=== PATIENT | female | born 1995 | race Caucasian/White ===

== ENCOUNTER 2021-12-02 01:22 | Emergency (ER) | payer OTHER ==
--- NOTE | 2021-12-02 02:19 | ERPHSYRPT ---
- History of Present Illness Time Seen by Provider: 12/02/21 02:05 Source: patient Exam Limitations: no limitations Patient Subjective Stated Complaint: headache since 8am, b/p was high at work today. Been having headaches x3 weeks off and on Triage Nursing Assessment: pt c/o headache since 8am. Pt's b/p was elevated at work today as they took it twice. Pt has been having these headaches x3 weeks off and on. Pt became nauseous just recently, but no nausea or vomiting all day. Pt describes the pain as sharp, shooting pain occasionally and it hurts to move her eyes back and forth, has stiffness in her neck. Physician History: This is a 25-year-old white female who in the last 3 weeks has had at least a daily migraine headache that resolved with Tylenol and ibuprofen. She has not suffered any head trauma. However, at approximately 8 AM on 12/01/2021 patient has had a headache that she has not been able to get rid of. She is on Aldactone for PCOS. She has noticed that her blood pressure has been in the 140s to 150s for systolic blood pressure and 90s to low 100s for diastolic blood pressure. She states that the headache she has now is the worst headache she has ever had. Patient stated that she did drive herself to the emergency department but she can get a ride home from her . Patient has an appointment to see her nurse practitioner Mary Lockhart on 12/03/2021. Timing/Duration: yesterday Quality: aching, throbbing Head Pain Location: global Severity of Pain-Max: moderate Severity of Pain-Current: moderate Recent Head Trauma: no recent headache/trauma, occasional headaches (More frequent in the last 3 weeks) Associated Symptoms: nausea/vomiting, sensitive to light (Mild) Previous symptoms: no prior history Allergies/Adverse Reactions: No Known Drug Allergies Allergy (Unverified 12/02/21 02:03) Home Medications: Semaglutide [Ozempic] 0.25 mg SQ WEEKLY 12/02/21 [History] Spironolactone 25 mg [Aldactone 25 MG] 25 mg PO HS 12/02/21 [History] Venlafaxine HCl ER 75 mg [Effexor XR 75 MG] 1 cap PO HS 12/02/21 [History] Hx Tetanus, Diphtheria Vaccination/Date Given: Yes Hx Influenza Vaccination/Date Given: Yes Hx Pneumococcal Vaccination/Date Given: No Immunizations Up to Date: Yes Travel Risk - International Travel Have you traveled outside of the country in past 3 weeks: No - Coronavirus Screening Are you exhibiting any of the following symptoms?: Yes Symptoms: Headaches/Body Aches/Fatigue - Vaccine Status Have you recieved a Covid-19 vaccination: Yes Sieve Grader Tender: Moderna - Vaccination Dates Date of 2cond Vaccination (if applicable): . - Review of Systems Constitutional: No Symptoms Eyes: No Symptoms Ears, Nose, & Throat: No Symptoms Respiratory: No Symptoms Cardiac: No Symptoms Abdominal/Gastrointestinal: Nausea, No Abdominal Pain, No Vomiting Genitourinary Symptoms: No Symptoms, Other Skin: No Symptoms Neurological: Headache Psychological: No Symptoms Endocrine: No Symptoms Hematologic/Lymphatic: No Symptoms Immunological/Allergic: No Symptoms All Other Systems: Reviewed and Negative - Past Medical History Pertinent Past Medical History: Yes Neurological History: No Pertinent History ENT History: No Pertinent History Cardiac History: No Pertinent History Respiratory History: Asthma Endocrine Medical History: No Pertinent History Musculoskeletal History: No Pertinent History GI Medical History: Gallbladder Disease History: No Pertinent History Psycho-Social History: Anxiety, Depression Female Reproductive Disorders: Other Other Medical History: PCOS - Past Surgical History Past Surgical History: Yes Neuro Surgical History: No Pertinent History Cardiac: No Pertinent History Respiratory: No Pertinent History Gastrointestinal: Cholecystectomy Genitourinary: No Pertinent History Musculoskeletal: No Pertinent History Female Surgical History: No Pertinent History - Social History Smoking Status: Never smoker Exposure to second hand smoke: No Drug Use: none Patient Lives Alone: No - Female History Hx Last Menstrual Period: 2 weeks ago Hx Now: No - Nursing Vital Signs Nursing Vital Signs: Initial Vital Signs Temperature 97.9 F 12/02/21 01:55 Pulse Rate 104 H 12/02/21 01:55 Respiratory Rate 16 12/02/21 01:55 Blood Pressure 156/93 12/02/21 01:55 O2 Sat by Pulse Oximetry 100 12/02/21 01:55 Pain Scale Pain Intensity 3 - Physical Exam General Appearance: mild distress, alert, anxiety Eye Exam: PERRL/EOMI, eyes nml inspection Ears, Nose, Throat Exam: normal ENT inspection, moist mucous membranes Neck Exam: normal inspection, non-tender, supple, full range of motion, No meningismus, No Brudzinski, No Kernig's Respiratory Exam: airway intact, No chest tenderness, No respiratory distress Cardiovascular Exam: regular rate/rhythm, normal heart sounds, normal peripheral pulses Gastrointestinal/Abdominal Exam: soft, normal bowel sounds, No tenderness Back Exam: normal inspection, normal range of motion, No CVA tenderness, No vertebral tenderness Extremity Exam: normal inspection, normal range of motion, pelvis stable Mental Status Exam: alert, oriented x 3, cooperative search strategist Exam: normal hearing, normal speech, PERRL, tongue midline Coordination/Gait Exam: normal gait, normal cerebellar function Motor/Sensory Exam: no motor deficit, no sensory deficit, no pronator drift Skin Exam: normal color, warm, dry Lymphatic Exam: No adenopathy SpO2 Interpretation: normal SpO2: 100 O2 Delivery: Room Air Ordered Tests: Active Orders 24 hr Category Date Time Status HEAD WITHOUT CONTRAST [CT] Stat Exams 12/02/21 02:21 Ordered Medication Summary Discontinued Medications Generic Name Dose Route Start Last Admin Trade Name Freq PRN Reason Stop Dose Admin Diphenhydramine HCl 25 mg 12/02/21 02:20 12/02/21 02:31 Diphenhydramine Hcl 50 Mg/Ml Vial IM 12/02/21 02:21 25 mg STAT ONE Administration Diphenhydramine HCl Confirm 12/02/21 02:24 Diphenhydramine Hcl 50 Mg/Ml Vial Administered 12/02/21 02:25 Dose 50 mg .ROUTE .STK-MED ONE Hydromorphone HCl 0.5 mg 12/02/21 02:20 12/02/21 02:32 Hydromorphone 1 Mg/1ml Inj 1 Mg/Ml Syringe IM 12/02/21 02:21 0.5 mg STAT ONE Administration Hydromorphone HCl Confirm 12/02/21 02:25 Hydromorphone 1 Mg/1ml Inj 1 Mg/Ml Syringe Administered 12/02/21 02:26 Dose 1 mg .ROUTE .STK-MED ONE Ketorolac Tromethamine 60 mg 12/02/21 02:20 12/02/21 02:31 Ketorolac Tromethamine 30 Mg/Ml Inj IM 12/02/21 02:21 60 mg STAT ONE Administration Ketorolac Tromethamine Confirm 12/02/21 02:24 Ketorolac Tromethamine 30 Mg/Ml Inj Administered 12/02/21 02:25 Dose 60 mg .ROUTE .STK-MED ONE Ondansetron HCl 4 mg 12/02/21 02:20 12/02/21 02:32 Zofran 4 Mg/Udtablet Orally Disintegrating PO 12/02/21 02:21 4 mg STAT ONE Administration Ondansetron HCl Confirm 12/02/21 02:24 Zofran 4 Mg/Udtablet Orally Disintegrating Administered 12/02/21 02:25 Dose 4 mg .ROUTE .STK-MED ONE Lab/Rad Data: Laboratory Results 12/02/21 Range/Units 02:40 Influenza Type A Ag NEGATIVE (NEGATIVE) Influenza Type B Ag NEGATIVE (NEGATIVE) RSV (PCR) NEGATIVE (Negative) SARS-CoV-2 (PCR) NEGATIVE (NEGATIVE) - Progress Progress: improved, re-examined Air Movement: good Progress Note: 12/02/21 03:49 CAT scan of the of the head without contrast shows no acute intracranial abnormality 12/02/21 03:49 Counseled pt/family regarding: lab results, diagnosis, need for follow-up, rad results - Departure Departure Disposition: Home Clinical Impression: Migraine headache Condition: Stable Critical Care Time: No Referrals: JANY LOCKHART NP [Primary Care Provider] - Follow up/PCP as directed Additional Instructions: Keep your appointment with nurse practitioner Mary Lockhart on 12/03/2021 at scheduled appointment time.
[2021-12-02] MEDS ORDERED: TORAdol 30 mg Injection IM ONE (02:20)
[2021-12-02] MEDS ORDERED: Hydromorphone 1 mg/ml Injection IM ONE (02:20)
[2021-12-02] MEDS ORDERED: ZOFRAN ODT 4 MG PO ONE (02:20)
[2021-12-02] MEDS ORDERED: BENADRYL 50 MG/ML IM ONE (02:20)
[2021-12-02] MEDS ORDERED: ZOFRAN ODT 4 MG ONE (02:24)
[2021-12-02] MEDS ORDERED: TORAdol 30 mg Injection ONE (02:24)
[2021-12-02] MEDS ORDERED: BENADRYL 50 MG/ML ONE (02:24)
[2021-12-02] MEDS ORDERED: Hydromorphone 1 mg/ml Injection ONE (02:25)
[2021-12-02 03:20] LABS: INFLUENZA A NEGATIVE (NEGATIVE); INFLUENZA B NEGATIVE (NEGATIVE); RESPIRATORY SYNCTIAL VIRUS NEGATIVE (Negative); SARS-CoV-2 Xpert Express NEGATIVE (NEGATIVE)
[2021-12-02 03:52] VITALS: BP 133/78; PULSE 93; O2SAT 96
--- NOTE | 2021-12-02 08:56 | XRAY ---
Indication: Headache. Multiple contiguous axial images obtained through the head without contrast. Comparison: None Normal appearing brain parenchyma, ventricles, and bony calvarium. Visualized paranasal sinuses and mastoid air cells are clear. Impression: Normal CT head without contrast exam. Comment: Preliminary interpretation made by [facility]. No critical discrepancy.
== END 2021-12-02 03:57 | disposition home or self-care (01) ==
LOC: ED 01:22
DX: G43.909 Migraine, unspecified, not intractable, without status migrainosus (principal); R11.2 Nausea with vomiting, unspecified; Z79.899 Other long term (current) drug therapy
CPT/HCPCS: 0241U; 70450; 96372; 99284; J1170; J1200; J1885; Q0162

== ENCOUNTER 2022-11-02 12:57 | Emergency (ER) | payer OTHER ==
[2022-11-02] MEDS ORDERED: Zofran 4 MG/2 ML VIAL IV ONE (13:25)
[2022-11-02] MEDS ORDERED: Sodium Chloride 0.9% 1000 ML 1,000 ML IV STA (13:25)
[2022-11-02] MEDS ORDERED: MORPHINE SULFATE 2 MG INJ IV ONE (13:29)
--- NOTE | 2022-11-02 13:29 | ERPHSYRPT ---
- History of Present Illness Time Seen by Provider: 11/02/22 13:27 Exam Limitations: no limitations Patient Subjective Stated Complaint: Pt states "I have right lower belly pain." Triage Nursing Assessment: Pt presented alert and oriented X 3, skin pwd. Pt ambulates with an upright steady gait. PT guarding her abdomen. PT right lower abdomen is tender to touch as well as rebound tenderness. Physician History: Patient is a 26-year-old female presents the emergency department for evaluation of abdominal pain. Abdominal pain started this morning. Pain described as an ache that is localized to the right lower quadrant. No radiation. Nausea is associated with pain. No trauma. No fever. No urinary symptomology. Symptoms are moderate in intensity. Palpation worsens symptoms. Pain improved with rest. Vital stable. Significant other at bedside. Patient declined pain medication. Patient is otherwise healthy. She voices no other complaints or concerns at this time. Portions of this note were created with voice recognition technology. There may be grammatical, spelling, punctuation or sound alike errors Timing/Duration: today Activities at Onset: none Quality: aching Abdominal Pain Onset Location: RLQ Pain Radiation: no radiation Severity of Pain-Max: moderate Severity of Pain-Current: mild Modifying Factors: Improves With: palpation Associated Symptoms: nausea Previous symptoms: no prior history Allergies/Adverse Reactions: lisinopril Allergy (Intermediate, Verified 11/02/22 13:09) Cough Home Medications: Spironolactone 25 mg [Aldactone 25 MG] 25 mg PO HS 12/02/21 [History] Venlafaxine HCl ER 75 mg [Effexor XR 75 MG] 1 cap PO HS 12/02/21 [History] Losartan Potassium 50 mg [Cozaar 50 MG] 50 mg PO DAILY 11/02/22 [History] Hx Tetanus, Diphtheria Vaccination/Date Given: Yes Hx Influenza Vaccination/Date Given: Yes Hx Pneumococcal Vaccination/Date Given: No Immunizations Up to Date: Yes Travel Risk - International Travel Have you traveled outside of the country in past 3 weeks: No - Coronavirus Screening Are you exhibiting any of the following symptoms?: No Close contact with a COVID-19 positive Pt in past 14-21 Days: No - Vaccine Status Have you recieved a Covid-19 vaccination: Yes Patrol Supervisor: Moderna - Vaccination Dates Date of 2cond Vaccination (if applicable): 2020 - Review of Systems Constitutional: No Symptoms, No Fever, No Chills Eyes: No Symptoms Ears, Nose, & Throat: No Symptoms Respiratory: No Symptoms, No Cough, No Dyspnea Cardiac: No Symptoms, No Chest Pain, No Edema, No Syncope Abdominal/Gastrointestinal: No Symptoms, No Abdominal Pain, No Nausea, No Vomiting, No Diarrhea Genitourinary Symptoms: No Symptoms, No Dysuria Musculoskeletal: No Symptoms, No Back Pain, No Neck Pain Skin: No Symptoms, No Rash Neurological: No Symptoms, No Dizziness, No Focal Weakness, No Sensory Changes Psychological: No Symptoms Endocrine: No Symptoms Hematologic/Lymphatic: No Symptoms Immunological/Allergic: No Symptoms All Other Systems: Reviewed and Negative - Past Medical History Pertinent Past Medical History: Yes Neurological History: No Pertinent History ENT History: No Pertinent History Cardiac History: No Pertinent History, Hypertension Respiratory History: Asthma Endocrine Medical History: No Pertinent History Musculoskeletal History: No Pertinent History GI Medical History: Gallbladder Disease History: No Pertinent History Psycho-Social History: Anxiety, Depression Female Reproductive Disorders: Other Other Medical History: PCOS - Past Surgical History Past Surgical History: Yes Neuro Surgical History: No Pertinent History Cardiac: No Pertinent History Respiratory: No Pertinent History Gastrointestinal: Cholecystectomy Genitourinary: No Pertinent History Musculoskeletal: No Pertinent History Female Surgical History: No Pertinent History - Social History Smoking Status: Never smoker Exposure to second hand smoke: No Drug Use: none Patient Lives Alone: No - Female History Hx Last Menstrual Period: 10/24/2022 Hx Now: No - Nursing Vital Signs Nursing Vital Signs: Initial Vital Signs Temperature 97.1 F 11/02/22 13:02 Pulse Rate 111 H 11/02/22 13:02 Respiratory Rate 20 11/02/22 13:02 Blood Pressure 132/90 11/02/22 13:02 O2 Sat by Pulse Oximetry 97 11/02/22 13:02 Pain Scale Pain Intensity 0 - Physical Exam General Appearance: no apparent distress, alert Eye Exam: PERRL/EOMI, eyes nml inspection Ears, Nose, Throat Exam: normal ENT inspection, TMs normal, pharynx normal, moist mucous membranes Neck Exam: normal inspection, non-tender, supple, full range of motion Respiratory Exam: normal breath sounds, lungs clear, airway intact, No chest tenderness, No respiratory distress Cardiovascular Exam: regular rate/rhythm, normal heart sounds, normal peripheral pulses Gastrointestinal/Abdomen Exam: soft, tenderness (Right lower quadrant tenderness to palpation.), No mass, No guarding, No pulsatile mass, No rebound, No hernia Back Exam: normal inspection, normal range of motion, No CVA tenderness, No vertebral tenderness Extremity Exam: normal inspection, normal range of motion, pelvis stable Neurologic Exam: alert, oriented x 3, cooperative, normal mood/affect, sensation nml, No motor deficits Skin Exam: normal color, warm, dry Lymphatic Exam: No adenopathy SpO2 Interpretation: normal SpO2: 97 O2 Delivery: Room Air - Course Nursing assessment & vital signs reviewed: Yes Ordered Tests: Active Orders 24 hr Category Date Time Status IV Insertion STAT Care 11/02/22 13:25 Active ABDOMEN AND PELVIS W/0 CONTRAS [CT] Stat Exams 11/02/22 13:25 Completed CBC W DIFF Stat Lab 11/02/22 13:25 Completed CMP Stat Lab 11/02/22 13:25 Completed CULTURE,URINE Stat Lab 11/02/22 15:23 Received HCG QUALITATIVE, SERUM Stat Lab 11/02/22 13:41 Completed LIPASE Stat Lab 11/02/22 13:25 Completed UA W/RFX UR CULTURE Stat Lab 11/02/22 15:23 Completed Medication Summary Discontinued Medications Generic Name Dose Route Start Last Admin Trade Name Elijah PRN Reason Stop Dose Admin Sodium Chloride 1,000 mls @ 999 mls/hr 11/02/22 13:25 11/02/22 14:45 Sodium Chloride 0.9% 1000 Ml IV 11/02/22 14:25 Infused .Q1H1M STA Infusion Sodium Chloride Confirm 11/02/22 13:35 Sodium Chloride 0.9% 1000 Ml Administered 11/02/22 13:36 Dose 1,000 mls @ ud .ROUTE .STK-MED ONE Morphine Sulfate 2 mg 11/02/22 13:29 11/02/22 13:38 Morphine Sulfate 2 Mg/Ml Inj IV 11/02/22 13:30 2 mg STAT ONE Administration Morphine Sulfate Confirm 11/02/22 13:35 Morphine Sulfate 2 Mg/Ml Inj Administered 11/02/22 13:36 Dose 2 mg .ROUTE .STK-MED ONE Nitrofurantoin Macrocrystals 100 mg 11/02/22 15:52 Nitrofurantoin Macro 100 Mg Capsule PO 11/02/22 15:53 STAT ONE Ondansetron HCl 4 mg 11/02/22 13:25 11/02/22 13:38 Ondansetron Hcl 4 Mg/2 Ml Vial IV 11/02/22 13:26 4 mg STAT ONE Administration Ondansetron HCl Confirm 11/02/22 13:35 Ondansetron Hcl 4 Mg/2 Ml Vial Administered 11/02/22 13:36 Dose 4 mg .ROUTE .STK-MED ONE Lab/Rad Data: Laboratory Result Diagrams 11/02/22 13:25 11/02/22 13:25 Laboratory Results 11/02/22 11/02/22 11/02/22 Range/Units 15:23 13:41 13:25 WBC (4.0-10.5) x10^3/uL RBC (4.1-5.4) x10^6/uL Hgb (12.0-16.0) g/dL Hct (35-47) % MCV (78-100) fL MCH (26-32) pg MCHC (32-36) g/dL RDW (11.5-14.0) % Plt Count (150-450) x10^3/uL MPV (7.5-11.0) fL Gran % (36.0-66.0) % Immature Gran % (Auto) (0.00-0.4) % Nucleat RBC Rel Count (0.00-0.1) % Eos # (Auto) (0-0.5) x10^3/uL Immature Gran # (Auto) (0.00-0.03) x10^3u/L Absolute Lymphs (auto) (1.0-4.6) x10^3/uL Absolute Monos (auto) (0.0-1.3) x10^3/uL Absolute Nucleated RBC (0.00-0.01) x10^3u/L Lymphocytes % (24.0-44.0) % Monocytes % (0.0-12.0) % Eosinophils % (0.00-5.0) % Basophils % (0.0-0.4) % Absolute Granulocytes (1.4-6.9) x10^3/uL Basophils # (0-0.4) x10^3/uL Sodium 140 (137-145) mmol/L Potassium 4.2 (3.5-5.1) mmol/L Chloride 102 (98-107) mmol/L Carbon Dioxide 25 (22-30) mmol/L Anion Gap 16.9 H (5-15) MEQ/L BUN 14 (7-17) mg/dL Creatinine 0.71 (0.52-1.04) mg/dL Estimated GFR > 60.0 ML/MIN Glucose 117 H (74-106) mg/dL Calcium 9.0 (8.4-10.2) mg/dL Total Bilirubin 0.50 (0.2-1.3) mg/dL AST 35 (14-36) U/L ALT 33 (0-35) U/L Alkaline Phosphatase 112 (38-126) U/L Serum Total Protein 8.5 H (6.3-8.2) g/dL Albumin 4.6 (3.5-5.0) g/dL Lipase 126 (23-300) U/L Serum HCG, Qual NEGATIVE (NEGATIVE) Urine Color Yellow (Yellow) Urine Appearance Clear (Clear) Urine pH 7.0 (4.6-8.0) Ur Specific [place] 1.020 (1.005-1.030) Urine Protein Negative (Negative) Urine Glucose (UA) Negative (Negative) mg/dL Urine Ketones Negative (Negative) Urine Blood Trace (Negative) Urine Nitrite Negative (Negative) Urine Bilirubin Negative (Negative) Urine Urobilinogen 1.0 A (0.2) mg/dL Ur Leukocyte Esterase Small A (Negative) U Hyaline Cast (Auto) NONE SEEN (0-2) /LPF Urine Microscopic RBC 11-20 A (0-5) /HPF Urine Microscopic WBC 11-20 A (0-5) /HPF Ur Epithelial Cells Few (None Seen) /HPF Urine Bacteria Few A (None Seen) /HPF Urine Culture Reflexed YES (NO) 11/02/22 Range/Units 13:25 WBC 11.5 H (4.0-10.5) x10^3/uL RBC 5.74 H (4.1-5.4) x10^6/uL Hgb 12.5 (12.0-16.0) g/dL Hct 41.1 (35-47) % MCV 71.6 L (78-100) fL MCH 21.8 L (26-32) pg MCHC 30.4 L (32-36) g/dL RDW 17.3 H (11.5-14.0) % Plt Count 374 (150-450) x10^3/uL MPV 9.1 (7.5-11.0) fL Gran % 84.9 H (36.0-66.0) % Immature Gran % (Auto) 0.3 (0.00-0.4) % Nucleat RBC Rel Count 0.0 (0.00-0.1) % Eos # (Auto) 0.08 (0-0.5) x10^3/uL Immature Gran # (Auto) 0.04 H (0.00-0.03) x10^3u/L Absolute Lymphs (auto) 1.09 (1.0-4.6) x10^3/uL Absolute Monos (auto) 0.49 (0.0-1.3) x10^3/uL Absolute Nucleated RBC 0.00 (0.00-0.01) x10^3u/L Lymphocytes % 9.5 L (24.0-44.0) % Monocytes % 4.3 (0.0-12.0) % Eosinophils % 0.7 (0.00-5.0) % Basophils % 0.3 (0.0-0.4) % Absolute Granulocytes 9.72 H (1.4-6.9) x10^3/uL Basophils # 0.04 (0-0.4) x10^3/uL Sodium (137-145) mmol/L Potassium (3.5-5.1) mmol/L Chloride (98-107) mmol/L Carbon Dioxide (22-30) mmol/L Anion Gap (5-15) MEQ/L BUN (7-17) mg/dL Creatinine (0.52-1.04) mg/dL Estimated GFR ML/MIN Glucose (74-106) mg/dL Calcium (8.4-10.2) mg/dL Total Bilirubin (0.2-1.3) mg/dL AST (14-36) U/L ALT (0-35) U/L Alkaline Phosphatase (38-126) U/L Serum Total Protein (6.3-8.2) g/dL Albumin (3.5-5.0) g/dL Lipase (23-300) U/L Serum HCG, Qual (NEGATIVE) Urine Color (Yellow) Urine Appearance (Clear) Urine pH (4.6-8.0) Ur Specific [place] (1.005-1.030) Urine Protein (Negative) Urine Glucose (UA) (Negative) mg/dL Urine Ketones (Negative) Urine Blood (Negative) Urine Nitrite (Negative) Urine Bilirubin (Negative) Urine Urobilinogen (0.2) mg/dL Ur Leukocyte Esterase (Negative) U Hyaline Cast (Auto) (0-2) /LPF Urine Microscopic RBC (0-5) /HPF Urine Microscopic WBC (0-5) /HPF Ur Epithelial Cells (None Seen) /HPF Urine Bacteria (None Seen) /HPF Urine Culture Reflexed (NO) - Progress Progress: improved Progress Note: Patient is a 26-year-old female presents emergency department for evaluation of right lower quadrant pain that started this morning. CT abdomen pelvis reveals a tiny umbilical hernia and fecal stasis. Laboratory work-up reveals a mild leukocytosis. Urinalysis reveals a urinary tract infection. Patient received a dose of Macrobid in our ED. A prescription for the same was forwarded to patient's pharmacy. Patient received a dose of Zofran in our ED for nausea. Patient states she has Zofran at home. She does not need a prescription for Zofran at this time. Will discharge home. A work note was provided. Patient may return to work on Wednesday as long as symptoms have resolved. Patient feels better. Pain improved not completely resolved. Patient appears comfortable. She voices no other complaints or concerns at this time. Portions of this note were created with voice recognition technology. There may be grammatical, spelling, punctuation or sound alike errors 11/02/22 15:56 Work-up entailed CT abdomen pelvis, CBC which revealed a mild leukocytosis. CMP, patient's unable to provide urine upon arrival so a serum hCG was ordered which was negative for . Lipase negative. Later in the course of her stay in our ED patient produced urine. Urine was checked and reveals a urinary tract infection. Patient received an oral dose of Macrobid in our ED. Patient also received a dose of Zofran for nausea. Morphine administered for pain control. 1 L of normal saline IV fluids administered as well. Patient states she is ready for discharge. Patient's presenting complaint is acute. Complexity of problem addressed is moderate acute with systemic manifestations. No critical care time Complexity of data reviewed and analyzed is moderate. Laboratory test ordered and analyzed. UA reveals a urinary tract infection with a pyuria. Risk of complication and or risk morbidity/mortality of patient management is high. Patient's pain was treated with IV morphine. We initially intended to administer Toradol. Morphine was given instead because urine resolved had not been obtained at that time. Patient agrees to follow-up with her primary care doctor within 48 hours for reevaluation. She voices no other complaints concerns at this time. Portions of this note were created with voice recognition technology. There may be grammatical, spelling, punctuation or sound alike errors 11/02/22 15:58 Counseled pt/family regarding: lab results, diagnosis, need for follow-up, rad results - Departure Departure Disposition: Home Clinical Impression: fecal stasis, Umbilical hernia, UTI (urinary tract infection), Leukocytosis Condition: Stable Critical Care Time: No Referrals: ANNE IBARRA, [employer] [Primary Care Provider] - Follow up/PCP as directed Additional Instructions: Discharge/Care Plan BENNETT IBARRA was seen on 11/02/22 in the Emergency Room. The patient was counseled regarding Diagnosis,Lab results, Imaging studies, need for follow up and when to return to the Emergency Room. Prescriptions given: Discharge Note I have spoken with the patient and/or caregivers. I have explained the patient's condition, diagnosis and treatment plan based on the information available to me at this time. I have answered the patient's and/or caregiver's questions and addressed any concerns. The patient and/or caregivers have as good understanding of the patient's diagnosis, condition and treatment plan as can be expected at this point. The vital signs have been stable. The patient's condition is stable and appropriate for discharge from the emergency department. The patient will pursue further outpatient evaluation with the primary care physician or other designated or consulting physician as outlined in the discharge instructions. The patient and/or caregivers are agreeable to this plan of care and follow-up instructions have been explained in detail. The patient and/or caregivers have received these instruction. The patient/and or caregivers are aware that any significant change in condition or worsening of symptoms should prompt an immediate return to this or the closest emergency department or call 911. Forms: Work/School Release Form Prescriptions: Nitrofurantoin Macro 100 mg [Macrobid 100MG Capsule] 100 mg PO BID 7 Days #14 cap
[2022-11-02 13:35] LABS: Absolute Neutrophil Ct (ANC) 9.72 x10^3/uL (1.4-6.9); BASOPHIL % 0.3 % (0.0-0.4); Basophil (Absolute #) 0.04 x10^3/uL (0-0.4); Eosinophil % 0.7 % (0.00-5.0); Eosinophil (Absolute #) 0.08 x10^3/uL (0-0.5); Hematocrit 41.1 % (35-47); Hemoglobin 12.5 g/dL (12.0-16.0); IMMATURE GRAN # 0.04 x10^3u/L (0.00-0.03); IMMATURE GRAN % 0.3 % (0.00-0.4); Lymphocyte (Absolute #) 1.09 x10^3/uL (1.0-4.6); Lymphocytes % 9.5 % (24.0-44.0); Mean Cell Volume 71.6 fL (78-100); Mean Corpuscular Hemoglobin 21.8 pg (26-32); Mean Corpuscular Hgb Concent. 30.4 g/dL (32-36); Mean Platelet Volume 9.1 fL (7.5-11.0); Monocyte (Absolute #) 0.49 x10^3/uL (0.0-1.3); Monocytes % 4.3 % (0.0-12.0); Neutrophil % 84.9 % (36.0-66.0); Platelet Count 374 x10^3/uL (150-450); Red Blood Count 5.74 x10^6/uL (4.1-5.4); Red Cell Distribution Width 17.3 % (11.5-14.0); White Blood Count 11.5 x10^3/uL (4.0-10.5)
[2022-11-02] MEDS ORDERED: Zofran 4 MG/2 ML VIAL ONE (13:35)
[2022-11-02] MEDS ORDERED: MORPHINE SULFATE 2 MG INJ ONE (13:35)
[2022-11-02] MEDS ORDERED: Sodium Chloride 0.9% 1000 ML 1,000 ML ONE (13:35)
[2022-11-02 13:37] LABS: ALBUMIN 4.6 g/dL (3.5-5.0); ALKALINE PHOSPHATASE 112 U/L (38-126); ANION GAP 16.9 MEQ/L (5-15); BLOOD UREA NITROGEN 14 mg/dL (7-17); CHLORIDE 102 mmol/L (98-107); Carbon Dioxide 25 mmol/L (22-30); Creatinine 1 0.71 mg/dL (0.52-1.04); EST GLOMERULAR FILTRATION RATE > 60.0 ML/MIN; Glucose 117 mg/dL (74-106); LIPASE 126 U/L (23-300); Potassium 4.2 mmol/L (3.5-5.1); SGOT/AST 35 U/L (14-36); SGPT/ALT 33 U/L (0-35); SODIUM 140 mmol/L (137-145); Total Protein 8.5 g/dL (6.3-8.2)
[2022-11-02 13:41] LABS: HCG SERUM TEST NEGATIVE (NEGATIVE)
[2022-11-02 14:17] VITALS: PULSE 98
--- NOTE | 2022-11-02 14:25 | XRAY ---
Indication: Right lower quadrant pain. Elevated WBC. Multiple contiguous images obtained through the abdomen and pelvis without contrast. Comparison: None Lung bases are clear. Heart not enlarged. Noncontrasted stomach and bowel loops appear nonobstructed with normal appendix. Mild diffuse scattered colonic fecal debris throughout. Previous cholecystectomy. No free fluid/air. Remaining liver, pancreas, spleen, adrenal glands, kidneys, ureters, bladder, uterus, and aorta are unremarkable for noncontrast exam. Osseous structures intact. Tiny fatty umbilical hernia. Impression: Mild diffuse fecal stasis and tiny fatty umbilical hernia. Remaining CT abdomen/pelvis noncontrast exam is negative.
[2022-11-02 15:33] LABS: Appearance Clear (Clear); Bacteria Few /HPF (None Seen); Bilirubin Negative (Negative); Blood Trace (Negative); Epithelial Cells Few /HPF (None Seen); Glucose, Urine Negative (Negative); Hyaline Casts NONE SEEN /LPF (0-2); Ketones Negative (Negative); Leukocyte Esterase Small (Negative); Nitrite Negative (Negative); Protein,Urine Dip Negative (Negative)
[2022-11-02 15:35] LABS: ADD URINE CULTURE? YES (NO)
[2022-11-02] MEDS ORDERED: Macrobid 100MG Capsule PO ONE (15:52)
[2022-11-02] MEDS ORDERED: Macrobid 100MG Capsule ONE (15:57)
[2022-11-02 16:03] VITALS: BP 98/65
[2022-11-02 16:04] VITALS: O2SAT 97
== END 2022-11-02 16:07 | disposition home or self-care (01) ==
LOC: ED 12:57
DX: N39.0 Urinary tract infection, site not specified (principal); K59.89 Other specified functional intestinal disorders; K42.9 Umbilical hernia without obstruction or gangrene; D72.829 Elevated white blood cell count, unspecified; R10.31 Right lower quadrant pain; R11.0 Nausea; I10 Essential (primary) hypertension; Z79.899 Other long term (current) drug therapy
CPT/HCPCS: 36000; 36415; 74176; 80053; 81001; 83690; 84703; 85025; 87086; 96360; 96374; 96375; 99284; J2270; J2405; A9270-GY

== ENCOUNTER 2023-03-01 09:09 | Observation (INO) | payer BC, OTHER ==
[2023-03-01] MEDS ORDERED: Sodium Chloride 0.9% 1000 ML 1,000 ML IV STA (09:26)
[2023-03-01] MEDS ORDERED: Sodium Chloride 0.9% 1000 ML 1,000 ML ONE ×2 (09:30→12:28)
[2023-03-01] MEDS ORDERED: Zofran 4 MG/2 ML VIAL ONE ×2 (09:30→12:17)
[2023-03-01] MEDS ORDERED: Zofran 4 MG/2 ML VIAL IV ONE ×2 (09:34→12:11)
[2023-03-01 09:40] LABS: Absolute Neutrophil Ct (ANC) 6.22 x10^3/uL (1.4-6.9); BASOPHIL % 0.3 % (0.0-0.4); Basophil (Absolute #) 0.03 x10^3/uL (0-0.4); Eosinophil % 0.3 % (0.00-5.0); Eosinophil (Absolute #) 0.03 x10^3/uL (0-0.5); Hematocrit 38.2 % (35-47); Hemoglobin 11.9 g/dL (12.0-16.0); IMMATURE GRAN # 0.04 x10^3u/L (0.00-0.03); IMMATURE GRAN % 0.5 % (0.00-0.4); Lymphocyte (Absolute #) 1.81 x10^3/uL (1.0-4.6); Lymphocytes % 20.9 % (24.0-44.0); Mean Cell Volume 73.2 fL (78-100); Mean Corpuscular Hemoglobin 22.8 pg (26-32); Mean Corpuscular Hgb Concent. 31.2 g/dL (32-36); Mean Platelet Volume 9.1 fL (7.5-11.0); Monocyte (Absolute #) 0.52 x10^3/uL (0.0-1.3); Platelet Count 325 x10^3/uL (150-450); Red Blood Count 5.22 x10^6/uL (4.1-5.4); Red Cell Distribution Width 16.6 % (11.5-14.0); White Blood Count 8.7 x10^3/uL (4.0-10.5)
--- NOTE | 2023-03-01 09:45 | ERPHSYRPT ---
- History of Present Illness Historian: patient Exam Limitations: no limitations Patient Subjective Stated Complaint: Vomiting Triage Nursing Assessment: Patient ambulated back to ED and transferred self to bed. Patient A+O X 3. Patient's skin pink, warm and dry. Patient complains of abdominal pain mid abdomen 5/10 since with N/V and diarrhea. Patient states her vomit this am was bright red and her stool is getting darker. Abdomen soft and round with BS X 4. Physician History: 27 yo Wf w 4 day h/o N/V/D w mild hematemesis/possible melena/sharp-stabbing periumbilical pain rated 5/10 on scale. Pt denies dysuria/hematuria/fever but has had some chills. Cough/coryza are also denied. Denies but is trying to conceive. PMH of anemia/lance/does not drink or smoke. Timing/Duration: other (4 days) Activities at Onset: rest Abdominal Pain Onset Location: periumbilical Pain Radiation: no radiation Severity of Pain-Max: moderate Severity of Pain-Current: moderate Modifying Factors: Improves With: nothing, vomiting Associated Symptoms: denies symptoms Previous symptoms: no prior history Allergies/Adverse Reactions: lisinopril Allergy (Intermediate, Verified 03/01/23 09:14) Cough Home Medications: Spironolactone 25 mg [Aldactone 25 MG] 100 mg PO HS 12/02/21 [History] Venlafaxine HCl ER 75 mg [Effexor XR 75 MG] 1 cap PO HS 12/02/21 [History] Losartan Potassium 50 mg [Cozaar 50 MG] 50 mg PO DAILY 11/02/22 [History] Hx Tetanus, Diphtheria Vaccination/Date Given: Yes Hx Influenza Vaccination/Date Given: Yes Hx Pneumococcal Vaccination/Date Given: No Immunizations Up to Date: Yes Travel Risk - International Travel Have you traveled outside of the country in past 3 weeks: No - Coronavirus Screening Are you exhibiting any of the following symptoms?: No Close contact with a COVID-19 positive Pt in past 14-21 Days: No - Vaccine Status Have you recieved a Covid-19 vaccination: Yes 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 - Vaccination Dates Date of 2cond Vaccination (if applicable): 2020 - Review of Systems Constitutional: No Symptoms, Malaise Eyes: No Symptoms Ears, Nose, & Throat: No Symptoms Respiratory: No Symptoms Cardiac: No Symptoms Abdominal/Gastrointestinal: No Symptoms, Nausea, Vomiting, Diarrhea Genitourinary Symptoms: No Symptoms Musculoskeletal: No Symptoms Skin: No Symptoms Neurological: No Symptoms Psychological: No Symptoms Endocrine: No Symptoms Hematologic/Lymphatic: No Symptoms Immunological/Allergic: No Symptoms - Past Medical History Pertinent Past Medical History: Yes Neurological History: No Pertinent History ENT History: No Pertinent History Cardiac History: No Pertinent History, Hypertension Respiratory History: Asthma Endocrine Medical History: No Pertinent History Musculoskeletal History: No Pertinent History GI Medical History: Gallbladder Disease History: No Pertinent History Psycho-Social History: Anxiety, Depression Female Reproductive Disorders: Other Other Medical History: PCOS - Past Surgical History Past Surgical History: Yes Neuro Surgical History: No Pertinent History Cardiac: No Pertinent History Respiratory: No Pertinent History Gastrointestinal: Cholecystectomy Genitourinary: No Pertinent History Musculoskeletal: No Pertinent History Female Surgical History: No Pertinent History - Social History Smoking Status: Never smoker Exposure to second hand smoke: No Drug Use: none Patient Lives Alone: No - Female History Hx Last Menstrual Period: currently Hx Now: No - Nursing Vital Signs Nursing Vital Signs: Initial Vital Signs Temperature 98.4 F 03/01/23 09:16 Pulse Rate 99 H 03/01/23 09:16 Respiratory Rate 18 03/01/23 09:16 Blood Pressure 103/68 03/01/23 09:16 O2 Sat by Pulse Oximetry 98 03/01/23 09:16 Pain Scale Pain Intensity 8 WNL - Physical Exam General Appearance: no apparent distress Eye Exam: PERRL/EOMI, eyes nml inspection Ears, Nose, Throat Exam: normal ENT inspection, TMs normal, pharynx normal, moist mucous membranes Neck Exam: normal inspection, non-tender, supple, full range of motion, No meningismus, No mass, No Brudzinski, No Kernig's Respiratory Exam: normal breath sounds, lungs clear, airway intact Cardiovascular Exam: regular rate/rhythm, normal heart sounds, normal peripheral pulses, capillary refill <2 sec, No murmur Gastrointestinal/Abdomen Exam: soft, normal bowel sounds, tenderness (Mild periu mbilical TTP wo guarding or rebound) Back Exam: normal inspection, normal range of motion Extremity Exam: normal inspection, normal range of motion Neurologic Exam: alert, oriented x 3, cooperative, valuation consultant II-XII nml as tested, normal mood/affect, nml cerebellar function, nml station & gait, sensation nml Skin Exam: normal color, warm, dry Lymphatic Exam: No adenopathy SpO2 Interpretation: normal SpO2: 98 O2 Delivery: Room Air - Course Nursing assessment & vital signs reviewed: Yes - CT Exams Abdomen/Pelvis CT Interpretation: Tele-radiologist Report (Fat containing umbilical hernia/otherwise negative) Ordered Tests: Active Orders 24 hr Category Date Time Status Bedrest with BRP/BSC ROUTINE Activity 03/01/23 12:35 Active Call Admit Doctor for Orders ON ADMISSION Care 03/01/23 12:34 Active Code Status Order ROUTINE Care 03/01/23 12:34 Active IV Insertion STAT Care 03/01/23 09:[address] in Observation ROUTINE Care 03/01/23 12:34 Active Clear Liquid Diet 03/01/23 Dinner Active ABDOMEN AND PELVIS W/0 CONTRAS [CT] Stat Exams 03/01/23 10:36 Completed AMYLASE Stat Lab 03/01/23 09:30 Completed BLOOD CULTURE Stat Lab 03/01/23 12:26 Received CBC W DIFF Stat Lab 03/01/23 09:30 Completed CMP Stat Lab 03/01/23 09:30 Completed HCG QUALITATIVE, SERUM Stat Lab 03/01/23 09:30 Completed LIPASE Stat Lab 03/01/23 09:30 Completed Lactic Acid Stat Lab 03/01/23 09:26 Completed UA W/RFX UR CULTURE Stat Lab 03/01/23 10:32 Completed Transfer Order Routine Transfer 03/01/23 Ordered Medication Summary Generic Name Dose Route Start Last Admin Trade Name Freq PRN Reason Stop Dose Admin Sodium Chloride 1,000 mls @ 100 mls/hr 03/01/23 12:30 03/01/23 12:33 Sodium Chloride 0.9% 1000 Ml IV 03/31/23 12:29 100 mls/hr .Q10H MOISES Administration Sodium Chloride 1,000 mls @ 125 mls/hr 03/01/23 12:45 Sodium Chloride 0.9% 1000 Ml IV 03/31/23 12:44 .Q8H MOISES Discontinued Medications Generic Name Dose Route Start Last Admin Trade Name Freq PRN Reason Stop Dose Admin Fentanyl Citrate 25 mcg 03/01/23 10:34 03/01/23 10:42 Fentanyl Citrate 100 Mcg/2 Ml* Vial IV 03/01/23 10:35 25 mcg STAT ONE Administration Fentanyl Citrate Confirm 03/01/23 10:40 Fentanyl Citrate 100 Mcg/2 Ml* Vial Administered 03/01/23 10:41 Dose 100 mcg .ROUTE .STK-MED ONE Fentanyl Citrate 50 mcg 03/01/23 12:11 03/01/23 12:18 Fentanyl Citrate 100 Mcg/2 Ml* Vial IV 03/01/23 12:12 50 mcg STAT ONE Administration Fentanyl Citrate Confirm 03/01/23 12:17 Fentanyl Citrate 100 Mcg/2 Ml* Vial Administered 03/01/23 12:18 Dose 100 mcg .ROUTE .STK-MED ONE Sodium Chloride 1,000 mls @ 999 mls/hr 03/01/23 09:26 03/01/23 10:33 Sodium Chloride 0.9% 1000 Ml IV 03/01/23 10:26 Infused .Q1H1M STA Infusion Sodium Chloride Confirm 03/01/23 09:30 Sodium Chloride 0.9% 1000 Ml Administered 03/01/23 09:31 Dose 1,000 mls @ ud .ROUTE .STK-MED ONE Ceftriaxone Sodium/Dextrose 1 g in 50 mls @ 100 mls/hr 03/01/23 12:18 03/01/23 12:30 Rocephin 1 Gm-D5w 50 Ml Bag IV 03/01/23 12:47 100 ml/hr STAT STA 100 mls/hr Administration Sodium Chloride Confirm 03/01/23 12:28 Sodium Chloride 0.9% 1000 Ml Administered 03/01/23 12:29 Dose 1,000 mls @ ud .ROUTE .STK-MED ONE Ceftriaxone Sodium/Dextrose Confirm 03/01/23 12:28 Rocephin 1 Gm-D5w 50 Ml Bag Administered 03/01/23 12:29 Dose 1 g in 50 mls @ ud IV .STK-MED ONE Ondansetron HCl Confirm 03/01/23 09:30 Ondansetron Hcl 4 Mg/2 Ml Vial Administered 03/01/23 09:31 Dose 4 mg .ROUTE .STK-MED ONE Ondansetron HCl 4 mg 03/01/23 09:34 03/01/23 09:35 Ondansetron Hcl 4 Mg/2 Ml Vial IV 03/01/23 09:35 4 mg STAT ONE Administration Ondansetron HCl 4 mg 03/01/23 12:11 03/01/23 12:18 Ondansetron Hcl 4 Mg/2 Ml Vial IV 03/01/23 12:12 4 mg STAT ONE Administration Ondansetron HCl Confirm 03/01/23 12:17 Ondansetron Hcl 4 Mg/2 Ml Vial Administered 03/01/23 12:18 Dose 4 mg .ROUTE .STK-MED ONE Pantoprazole Sodium 40 mg 03/01/23 12:23 03/01/23 12:32 Pantoprazole 40 Mg Vial IV 03/01/23 12:24 40 mg STAT ONE Administration Pantoprazole Sodium Confirm 03/01/23 12:31 Pantoprazole 40 Mg Vial Administered 03/01/23 12:32 Dose 40 mg IV .STK-MED ONE Lab/Rad Data: Laboratory Result Diagrams 03/01/23 09:30 03/01/23 09:30 Laboratory Results 03/01/23 03/01/23 03/01/23 Range/Units 10:32 09:37 09:30 WBC (4.0-10.5) x10^3/uL RBC (4.1-5.4) x10^6/uL Hgb (12.0-16.0) g/dL Hct (35-47) % MCV (78-100) fL MCH (26-32) pg MCHC (32-36) g/dL RDW (11.5-14.0) % Plt Count (150-450) x10^3/uL MPV (7.5-11.0) fL Gran % (36.0-66.0) % Immature Gran % (Auto) (0.00-0.4) % Nucleat RBC Rel Count (0.00-0.1) % Eos # (Auto) (0-0.5) x10^3/uL Immature Gran # (Auto) (0.00-0.03) x10^3u/L Absolute Lymphs (auto) (1.0-4.6) x10^3/uL Absolute Monos (auto) (0.0-1.3) x10^3/uL Absolute Nucleated RBC (0.00-0.01) x10^3u/L Lymphocytes % (24.0-44.0) % Monocytes % (0.0-12.0) % Eosinophils % (0.00-5.0) % Basophils % (0.0-0.4) % Absolute Granulocytes (1.4-6.9) x10^3/uL Basophils # (0-0.4) x10^3/uL Sodium (137-145) mmol/L Potassium (3.5-5.1) mmol/L Chloride (98-107) mmol/L Carbon Dioxide (22-30) mmol/L Anion Gap (5-15) MEQ/L BUN (7-17) mg/dL Creatinine (0.52-1.04) mg/dL Estimated GFR ML/MIN Glucose (74-106) mg/dL Lactic Acid (0.4-2.0) Calcium (8.4-10.2) mg/dL Total Bilirubin (0.2-1.3) mg/dL AST (14-36) U/L ALT (0-35) U/L Alkaline Phosphatase (38-126) U/L Serum Total Protein (6.3-8.2) g/dL Albumin (3.5-5.0) g/dL Amylase (30-110) U/L Lipase (23-300) U/L Serum HCG, Qual NEGATIVE (NEGATIVE) Urine Color Yellow (Yellow) Urine Appearance Clear (Clear) Urine pH 7.0 (4.6-8.0) Ur Specific [employer] <=1.005 (1.005-1.030) Urine Protein Negative (Negative) Urine Glucose (UA) Negative (Negative) mg/dL Urine Ketones Trace A (Negative) Urine Blood Moderate A (Negative) Urine Nitrite Negative (Negative) Urine Bilirubin Negative (Negative) Urine Urobilinogen 0.2 (0.2) mg/dL Ur Leukocyte Esterase Small A (Negative) U Hyaline Cast (Auto) NONE SEEN (0-2) /LPF Urine Microscopic RBC 3-5 (0-5) /HPF Urine Microscopic WBC 6-10 A (0-5) /HPF Ur Epithelial Cells Few (None Seen) /HPF Urine Bacteria Few A (None Seen) /HPF Urine Culture Reflexed NO (NO) Influenza Type A Ag NEGATIVE (NEGATIVE) Influenza Type B Ag NEGATIVE (NEGATIVE) RSV (PCR) NEGATIVE (NEGATIVE) SARS-CoV-2 (PCR) NEGATIVE (NEGATIVE) 03/01/23 03/01/23 03/01/23 Range/Units 09:30 09:30 09:26 WBC 8.7 (4.0-10.5) x10^3/uL RBC 5.22 (4.1-5.4) x10^6/uL Hgb 11.9 L (12.0-16.0) g/dL Hct 38.2 (35-47) % MCV 73.2 L (78-100) fL MCH 22.8 L (26-32) pg MCHC 31.2 L (32-36) g/dL RDW 16.6 H (11.5-14.0) % Plt Count 325 (150-450) x10^3/uL MPV 9.1 (7.5-11.0) fL Gran % 72.0 H (36.0-66.0) % Immature Gran % (Auto) 0.5 H (0.00-0.4) % Nucleat RBC Rel Count 0.0 (0.00-0.1) % Eos # (Auto) 0.03 (0-0.5) x10^3/uL Immature Gran # (Auto) 0.04 H (0.00-0.03) x10^3u/L Absolute Lymphs (auto) 1.81 (1.0-4.6) x10^3/uL Absolute Monos (auto) 0.52 (0.0-1.3) x10^3/uL Absolute Nucleated RBC 0.00 (0.00-0.01) x10^3u/L Lymphocytes % 20.9 L (24.0-44.0) % Monocytes % 6.0 (0.0-12.0) % Eosinophils % 0.3 (0.00-5.0) % Basophils % 0.3 (0.0-0.4) % Absolute Granulocytes 6.22 (1.4-6.9) x10^3/uL Basophils # 0.03 (0-0.4) x10^3/uL Sodium 138 (137-145) mmol/L Potassium 3.9 (3.5-5.1) mmol/L Chloride 102 (98-107) mmol/L Carbon Dioxide 23 (22-30) mmol/L Anion Gap 16.4 H (5-15) MEQ/L BUN 10 (7-17) mg/dL Creatinine 0.78 (0.52-1.04) mg/dL Estimated GFR > 60.0 ML/MIN Glucose 103 (74-106) mg/dL Lactic Acid 0.8 (0.4-2.0) Calcium 9.3 (8.4-10.2) mg/dL Total Bilirubin 0.40 (0.2-1.3) mg/dL AST 48 H (14-36) U/L ALT 71 H (0-35) U/L Alkaline Phosphatase 101 (38-126) U/L Serum Total Protein 8.2 (6.3-8.2) g/dL Albumin 4.7 (3.5-5.0) g/dL Amylase 60 (30-110) U/L Lipase 119 (23-300) U/L Serum HCG, Qual (NEGATIVE) Urine Color (Yellow) Urine Appearance (Clear) Urine pH (4.6-8.0) Ur Specific [employer] (1.005-1.030) Urine Protein (Negative) Urine Glucose (UA) (Negative) mg/dL Urine Ketones (Negative) Urine Blood (Negative) Urine Nitrite (Negative) Urine Bilirubin (Negative) Urine Urobilinogen (0.2) mg/dL Ur Leukocyte Esterase (Negative) U Hyaline Cast (Auto) (0-2) /LPF Urine Microscopic RBC (0-5) /HPF Urine Microscopic WBC (0-5) /HPF Ur Epithelial Cells (None Seen) /HPF Urine Bacteria (None Seen) /HPF Urine Culture Reflexed (NO) Influenza Type A Ag (NEGATIVE) Influenza Type B Ag (NEGATIVE) RSV (PCR) (NEGATIVE) SARS-CoV-2 (PCR) (NEGATIVE) - Progress Progress: improved Progress Note: 03/01/23 12:50 Nursing note and vital signs reviewed No food or housing insecurities noted Additional history per All lab results reviewed and shared w pt/ CT result reviewed and shared w pt/ 1L NS bolus 4mg IV Zofran 25mcg IV Fentanyl w mild relief in pain 50mcg IV Fentanyl/4mg IV zofran w moderate relief in pain Blood cultures x2 1gm IV Rocephin Obs per Dr. Wray No hematemesis or melenic stool while in ER Discussed with : Other (Mookie) Will see patient in: hospital (observation) Counseled pt/family regarding: lab results, diagnosis, need for follow-up, rad results Medical Desision Making - Independent Historian Additional History obtained from: Spouse - Discussion of managment Care discussed with:: hospitalist Reviewed:: Test results, Need for additional workup Agreed on:: Treatment plan, place in obs Will see patient: in hospital - Diagnostic Testing Diagnostic test were ordered, analyzed, and reviewed by me: Yes Radiological Interpretation: Reviewed by me, Teleradiologist Report - Risk of complications The pt has a high risk of morbidity or mortality based on: Decision regarding hospitilization or escalation of hosp level of care - Departure Departure Disposition: Observation Clinical Impression: UTI (urinary tract infection), Nausea & vomiting, Diarrhea Condition: Stable Critical Care Time: No Referrals: ANNE IBARRA NP [Primary Care Provider] - Follow up/PCP as directed
[2023-03-01 09:53] LABS: ALBUMIN 4.7 g/dL (3.5-5.0); ALKALINE PHOSPHATASE 101 U/L (38-126); AMYLASE 60 U/L (30-110); ANION GAP 16.4 MEQ/L (5-15); BLOOD UREA NITROGEN 10 mg/dL (7-17); CHLORIDE 102 mmol/L (98-107); Calcium 9.3 mg/dL (8.4-10.2); Carbon Dioxide 23 mmol/L (22-30); Creatinine 1 0.78 mg/dL (0.52-1.04); EST GLOMERULAR FILTRATION RATE > 60.0 ML/MIN; Glucose 103 mg/dL (74-106); LIPASE 119 U/L (23-300); Potassium 3.9 mmol/L (3.5-5.1); SGOT/AST 48 U/L (14-36); SGPT/ALT 71 U/L (0-35); SODIUM 138 mmol/L (137-145); Total Protein 8.2 g/dL (6.3-8.2)
[2023-03-01 09:55] LABS: HCG SERUM TEST NEGATIVE (NEGATIVE)
[2023-03-01 10:17] LABS: INFLUENZA A NEGATIVE (NEGATIVE); INFLUENZA B NEGATIVE (NEGATIVE); RESPIRATORY SYNCTIAL VIRUS NEGATIVE (NEGATIVE); SARS-CoV-2 Xpert Express NEGATIVE (NEGATIVE)
[2023-03-01] MEDS ORDERED: SUBLIMAZE 100 MCG/2 ML IV ONE ×2 (10:34→12:11)
[2023-03-01] MEDS ORDERED: SUBLIMAZE 100 MCG/2 ML ONE ×2 (10:40→12:17)
[2023-03-01 10:57] LABS: Appearance Clear (Clear); Bilirubin Negative (Negative); Blood Moderate (Negative); Glucose, Urine Negative (Negative); Hyaline Casts NONE SEEN /LPF (0-2); Ketones Trace (Negative); Leukocyte Esterase Small (Negative); Nitrite Negative (Negative); Protein,Urine Dip Negative (Negative); Specific Gravity <=1.005 (1.005-1.030); Urobilinogen 0.2 mg/dL (0.2)
[2023-03-01 10:59] LABS: ADD URINE CULTURE? NO (NO); Bacteria Few /HPF (None Seen); Epithelial Cells Few /HPF (None Seen)
--- NOTE | 2023-03-01 12:10 | XRAY ---
CLINICAL HISTORY:Periumbilical pain COMPARISON:11/02/2022. TECHNIQUE:CT of the abdomen and pelvis was performed with axial images as well as sagittal and coronal reconstruction images without intravenous contrast FINDINGS: There is small defects in the anterior abdominal wall in of midline of the anterior abdominal wall at the level of the umbilicus with herniation of omentum in the subcutaneous tissues, It measures about 2.6 cm in transverse dimensions, these findings are suggestive of small umbilical hernias. The visualized lung bases appear unremarkable. The heart size is within normal limits. The liver is normal in size, and morphology and appears unremarkable with no intrahepatic or extrahepatic bile duct dilation. The gallbladder is surgically removed. Unremarkable appearing pancreas. No pancreatic mass or ductal dilatation is seen. Unremarkable appearing spleen. The adrenal glands are normal. The kidneys appear unremarkable with no cysts masses or hydronephrosis. Tiny calcific focus measuring about 1.0 x 1.0 mm seen in the pyramid of upper pole of left kidney. The ureters are normal with no stones. Unremarkable abdominal aorta without specific evidence of aneurysm or dissection. IVC is normal. The stomach appears unremarkable. Unremarkable appearing duodenum. Small Bowel and colon are non-distended with no abnormality No free air and no ascites. No free intraperitoneal air is seen. The bladder is unremarkable with no stones. Both ovaries are unremarkable. The uterus is anteverted, and average size with no evidence of solid or cystic lesions. No other bony abnormality was detected. IMPRESSION: The above-mentioned findings are suggestive of a small fat containing umblical hernia. Rest of CT scan abdomen is unremarkable. Electronically Signed by: Ashli Cotton MD. (03/01/2023 11:08:23 HEALTH SYSTEMS ANALYST)
[2023-03-01] MEDS ORDERED: ROCEPHIN 1 Gm-D5w 50 ml Bag** 1 G/50 ML IVPB IV STA (12:18)
[2023-03-01] MEDS ORDERED: PROTONIX 40 MG IV IV ONE ×2 (12:23→12:31)
[2023-03-01] MEDS ORDERED: ROCEPHIN 1 Gm-D5w 50 ml Bag** 1 G/50 ML IVPB IV ONE (12:28)
[2023-03-01] MEDS ORDERED: Sodium Chloride 0.9% 1000 ML 1,000 ML IV SCH (12:30)
--- NOTE | 2023-03-01 13:37 | PCM.HP ---
History of Present Illness - Chief Complaint Chief Complaint: UTI/N/V/D Date: 03/01/23 History of Present Illness: is a 27 year old female with a pmhx of anxiety/depression, HTN, GERD, and h/o GB disease who presented to the ED 03/01/23 with complaints of chills, abdominal pain, nausea, vomiting, and diarrhea. Patient reports onset of symptoms was 02/25/23. She endorses since onset she has had multiple episodes of vomiting as well as greater than 3 watery bowel movements per day. Today she states she had blood-tinged vomit and noticed her stools have become dark with tar-like consistency. She has taken immodium at home which has helped some. Denies fever, cough, sob, cp, MOORE, N/V/D. Denies sick contacts. In ER patient mildly tachycardic, normotensive, and afebrile. CT of the abdomen and pelvis unremarkable for acute findings however a re-identified small fat containing umbilical hernia was noted. Lab interpretation remarkable for microcytic, hypochromic anemia with Hgb at 11.9 which appears to be close to baseline. Additional lab findings include Gap at 16.4, AST at 48, ALT at 71. UA mildly suspicious for UTI with small leukocytes and 6-10 microscopic WBC's and moderate blood. Blood cultures drawn and pending. Patient received a fluid bolus, Rocephin, zofran, and fentanyl. Plan for overnight observation with IVF, PPI, Rocephin, and anti-emetics. PCP: Jose Manuel Code Status:Full code - Review of Systems Constitutional: Chills Eyes: No Symptoms Ears, Nose, & Throat: No Symptoms Respiratory: No Symptoms Cardiac: No Symptoms Abdominal/Gastrointestinal: Abdominal Pain, Nausea, Vomiting, Diarrhea, Hematemesis, Melena Genitourinary Symptoms: No Symptoms Musculoskeletal: No Symptoms Skin: No Symptoms Neurological: No Symptoms Psychological: No Symptoms Endocrine: No Symptoms Hematologic/Lymphatic: Anemia, Other (currently menstrating) Medications & Allergies Home Medications: Home Medication List Spironolactone 25 mg [Aldactone 25 MG] 100 mg PO HS 12/02/21 [History Confirmed 03/01/23] Venlafaxine HCl ER 75 mg [Effexor XR 75 MG] 1 cap PO HS 12/02/21 [History Confirmed 03/01/23] Losartan Potassium 50 mg [Cozaar 50 MG] 50 mg PO DAILY 11/02/22 [History Confirmed 03/01/23] Loratadine 10 mg [Claritin 10 mg] 10 mg PO QHS 03/01/23 [History Confirmed 03/01/23] Melatonin 10 mg PO QHS 03/01/23 [History Confirmed 03/01/23] Omeprazole 40 mg PO QHS 03/01/23 [History Confirmed 03/01/23] Allergies/Adverse Reactions: Allergies Allergy/AdvReac Type Severity Reaction Status Date / Time lisinopril Allergy Intermediate Cough Verified 03/01/23 09:14 - Past Medical History Past Medical History: Yes Neurological History: No Pertinent History ENT History: No Pertinent History Cardiac History: No Pertinent History, Hypertension Respiratory History: Asthma Endocrine Medical History: No Pertinent History Musculoskelatal History: No Pertinent History GI Medical History: Gallbladder Disease History: No Pertinent History Pyscho-Social History: Anxiety, Depression Reproductive Disorders: Other Comment: PCOS - Female History Hx Last Menstrual Period: currently Are you now?: No - Past Surgical History Past Surgical History: Yes Neuro Surgical History: No Pertinent History Cardiac History: No Pertinent History Respiratory Surgery: No Pertinent History GI Surgical History: Cholecystectomy Genitourinary Surgical Hx: No Pertinent History Musculskeletal Surgical Hx: No Pertinent History Female Surgical History: No Pertinent History - Social History Smoking Status: Never smoker Exposure to second hand smoke: No Alcohol: Rarely Drug Use: none - Physical Exam Vital Signs: Vital Signs - 24 hr Temp Pulse Resp BP BP Pulse Ox 03/01/23 12:54 98 03/01/23 11:30 101 H 13 101/62 99 03/01/23 11:00 88 14 107/63 97 03/01/23 10:30 88 17 96/57 03/01/23 09:16 98.4 F 99 H 18 103/68 98 General Appearance: no apparent distress Neurologic Exam: alert, oriented x 3, cooperative, normal mood/affect Eye Exam: PERRL/EOMI Respiratory Exam: normal breath sounds, lungs clear Cardiovascular Exam: regular rate/rhythm, normal heart sounds Gastrointestinal/Abdomen Exam: soft, other (TTP mid epigastric region) Pelvic Exam: not done Rectal Exam: not done Back Exam: normal inspection Extremity Exam: normal inspection Skin Exam: pale Results - Labs Lab/Micro Results: Lab Results-Last 24 Hours 03/01/23 03/01/23 03/01/23 Range/Units 09:26 09:30 09:30 WBC 8.7 (4.0-10.5) x10^3/uL RBC 5.22 (4.1-5.4) x10^6/uL Hgb 11.9 L (12.0-16.0) g/dL Hct 38.2 (35-47) % MCV 73.2 L (78-100) fL MCH 22.8 L (26-32) pg MCHC 31.2 L (32-36) g/dL RDW 16.6 H (11.5-14.0) % Plt Count 325 (150-450) x10^3/uL MPV 9.1 (7.5-11.0) fL Gran % 72.0 H (36.0-66.0) % Immature Gran % (Auto) 0.5 H (0.00-0.4) % Nucleat RBC Rel Count 0.0 (0.00-0.1) % Eos # (Auto) 0.03 (0-0.5) x10^3/uL Immature Gran # (Auto) 0.04 H (0.00-0.03) x10^3u/L Absolute Lymphs (auto) 1.81 (1.0-4.6) x10^3/uL Absolute Monos (auto) 0.52 (0.0-1.3) x10^3/uL Absolute Nucleated RBC 0.00 (0.00-0.01) x10^3u/L Lymphocytes % 20.9 L (24.0-44.0) % Monocytes % 6.0 (0.0-12.0) % Eosinophils % 0.3 (0.00-5.0) % Basophils % 0.3 (0.0-0.4) % Absolute Granulocytes 6.22 (1.4-6.9) x10^3/uL Basophils # 0.03 (0-0.4) x10^3/uL Sodium 138 (137-145) mmol/L Potassium 3.9 (3.5-5.1) mmol/L Chloride 102 (98-107) mmol/L Carbon Dioxide 23 (22-30) mmol/L Anion Gap 16.4 H (5-15) MEQ/L BUN 10 (7-17) mg/dL Creatinine 0.78 (0.52-1.04) mg/dL Estimated GFR > 60.0 ML/MIN Glucose 103 (74-106) mg/dL Lactic Acid 0.8 (0.4-2.0) Calcium 9.3 (8.4-10.2) mg/dL Total Bilirubin 0.40 (0.2-1.3) mg/dL AST 48 H (14-36) U/L ALT 71 H (0-35) U/L Alkaline Phosphatase 101 (38-126) U/L Serum Total Protein 8.2 (6.3-8.2) g/dL Albumin 4.7 (3.5-5.0) g/dL Amylase 60 (30-110) U/L Lipase 119 (23-300) U/L Serum HCG, Qual (NEGATIVE) Urine Color (Yellow) Urine Appearance (Clear) Urine pH (4.6-8.0) Ur Specific [place] (1.005-1.030) Urine Protein (Negative) Urine Glucose (UA) (Negative) mg/dL Urine Ketones (Negative) Urine Blood (Negative) Urine Nitrite (Negative) Urine Bilirubin (Negative) Urine Urobilinogen (0.2) mg/dL Ur Leukocyte Esterase (Negative) U Hyaline Cast (Auto) (0-2) /LPF Urine Microscopic RBC (0-5) /HPF Urine Microscopic WBC (0-5) /HPF Ur Epithelial Cells (None Seen) /HPF Urine Bacteria (None Seen) /HPF Urine Culture Reflexed (NO) Influenza Type A Ag (NEGATIVE) Influenza Type B Ag (NEGATIVE) RSV (PCR) (NEGATIVE) SARS-CoV-2 (PCR) (NEGATIVE) 03/01/23 03/01/23 03/01/23 Range/Units 09:30 09:37 10:32 WBC (4.0-10.5) x10^3/uL RBC (4.1-5.4) x10^6/uL Hgb (12.0-16.0) g/dL Hct (35-47) % MCV (78-100) fL MCH (26-32) pg MCHC (32-36) g/dL RDW (11.5-14.0) % Plt Count (150-450) x10^3/uL MPV (7.5-11.0) fL Gran % (36.0-66.0) % Immature Gran % (Auto) (0.00-0.4) % Nucleat RBC Rel Count (0.00-0.1) % Eos # (Auto) (0-0.5) x10^3/uL Immature Gran # (Auto) (0.00-0.03) x10^3u/L Absolute Lymphs (auto) (1.0-4.6) x10^3/uL Absolute Monos (auto) (0.0-1.3) x10^3/uL Absolute Nucleated RBC (0.00-0.01) x10^3u/L Lymphocytes % (24.0-44.0) % Monocytes % (0.0-12.0) % Eosinophils % (0.00-5.0) % Basophils % (0.0-0.4) % Absolute Granulocytes (1.4-6.9) x10^3/uL Basophils # (0-0.4) x10^3/uL Sodium (137-145) mmol/L Potassium (3.5-5.1) mmol/L Chloride (98-107) mmol/L Carbon Dioxide (22-30) mmol/L Anion Gap (5-15) MEQ/L BUN (7-17) mg/dL Creatinine (0.52-1.04) mg/dL Estimated GFR ML/MIN Glucose (74-106) mg/dL Lactic Acid (0.4-2.0) Calcium (8.4-10.2) mg/dL Total Bilirubin (0.2-1.3) mg/dL AST (14-36) U/L ALT (0-35) U/L Alkaline Phosphatase (38-126) U/L Serum Total Protein (6.3-8.2) g/dL Albumin (3.5-5.0) g/dL Amylase (30-110) U/L Lipase (23-300) U/L Serum HCG, Qual NEGATIVE (NEGATIVE) Urine Color Yellow (Yellow) Urine Appearance Clear (Clear) Urine pH 7.0 (4.6-8.0) Ur Specific [place] <=1.005 (1.005-1.030) Urine Protein Negative (Negative) Urine Glucose (UA) Negative (Negative) mg/dL Urine Ketones Trace A (Negative) Urine Blood Moderate A (Negative) Urine Nitrite Negative (Negative) Urine Bilirubin Negative (Negative) Urine Urobilinogen 0.2 (0.2) mg/dL Ur Leukocyte Esterase Small A (Negative) U Hyaline Cast (Auto) NONE SEEN (0-2) /LPF Urine Microscopic RBC 3-5 (0-5) /HPF Urine Microscopic WBC 6-10 A (0-5) /HPF Ur Epithelial Cells Few (None Seen) /HPF Urine Bacteria Few A (None Seen) /HPF Urine Culture Reflexed NO (NO) Influenza Type A Ag NEGATIVE (NEGATIVE) Influenza Type B Ag NEGATIVE (NEGATIVE) RSV (PCR) NEGATIVE (NEGATIVE) SARS-CoV-2 (PCR) NEGATIVE (NEGATIVE) - Radiology Impressions Radiology Exams & Impressions: Radiology Procedures Category Date Time Status ABDOMEN AND PELVIS W/0 CONTRAS [CT] Stat Exams 03/01/23 10:36 Completed Assessment/Plan (1) UTI (urinary tract infection) Current Visit: Yes Status: Acute Assessment & Plan: -Mildly suspicious, will start empirically on Rocephin, follow culture Code(s): N39.0 - URINARY TRACT INFECTION, SITE NOT SPECIFIED (2) Diarrhea Current Visit: Yes Status: Acute Assessment & Plan: -Stool Culture, CDiff, O&P, Giardia -Occult stool -CLD ADAT Code(s): R19.7 - DIARRHEA, UNSPECIFIED (3) Nausea & vomiting Current Visit: Yes Status: Acute Assessment & Plan: -Zofran prn Code(s): R11.2 - NAUSEA WITH VOMITING, UNSPECIFIED (4) Anemia Current Visit: Yes Status: Acute Assessment & Plan: -Appears chronic, will add iron studies, ferritin, b12/fol -H&H Q8H -Stools for occult blood Code(s): D64.9 - ANEMIA, UNSPECIFIED (5) Umbilical hernia Current Visit: No Status: Acute Assessment & Plan: -Noted, add complexity, identified on previous CT imaging - VTE ppx: Bilateral SCD - IVF: NS - Surrogate decision-maker: None per pt - Dispo: Home 1-2 days Given the history and exam, the patient's ongoing medical problems are listed above. If available, I have reviewed prior external notes from unique non-same hospitalist sources. I have reviewed unique non-same hospitalist inpatient notes. I have discussed the case with providers/staff as necessary and documented, if relevant, above. History was obtained from the patient unless otherwise noted. Social determinants of health were considered and if pertinent, are discussed above and/or in HPI. Patients current medications were reviewed. Medication modifications, if made, discussed above. Relevant labs and imaging discussed above. Testing was discussed with patient unless otherwise noted and a plan of care was formed. Code(s): K42.9 - UMBILICAL HERNIA WITHOUT OBSTRUCTION OR GANGRENE
[2023-03-01] MEDS ORDERED: TYLENOL 325 MG PO PRN (13:41)
[2023-03-01] MEDS ORDERED: Zofran 4 MG/2 ML VIAL IV PRN (13:41)
[2023-03-01] MEDS: Sodium Chloride 0.9% 1000 ML 1,000 ML IV SCH ×2 (13:52→21:29)
[2023-03-01] MEDS: PROTONIX 40 MG IV IV SCH (14:47)
[2023-03-01 15:45] LABS: Ferritin 38.3 ng/mL (6.24-137)
[2023-03-01 18:58] VITALS: RESP 16
[2023-03-01 20:05] LABS: 027 TOX PROD PRESUMPTIVE NEGATIVE (NEGATIVE); TOXIGENIC C. DIFF ORG NEGATIVE (NEGATIVE)
[2023-03-01 21:12] LABS: IFOB TEST RESULTS NEGATIVE (NEGATIVE)
[2023-03-01] MEDS ORDERED: MELATONIN PO SCH (22:00)
[2023-03-01] MEDS ORDERED: Effexor XR 75 MG PO SCH (22:00)
[2023-03-01] MEDS ORDERED: CLARITIN 10 MG PO SCH (22:00)
[2023-03-01] MEDS ORDERED: Cozaar 50 MG PO SCH (22:00)
[2023-03-01] MEDS ORDERED: Ativan 1 MG PO ONE (22:05)
[2023-03-02] MEDS: Sodium Chloride 0.9% 1000 ML 1,000 ML IV SCH (04:47)
[2023-03-02 04:50] LABS: Hematocrit 35.8 % (35-47); Hemoglobin 11.1 g/dL (12.0-16.0); Mean Cell Volume 73.5 fL (78-100); Mean Corpuscular Hemoglobin 22.8 pg (26-32); Mean Platelet Volume 8.8 fL (7.5-11.0); Platelet Count 268 x10^3/uL (150-450); Red Blood Count 4.87 x10^6/uL (4.1-5.4); Red Cell Distribution Width 17.2 % (11.5-14.0); White Blood Count 6.1 x10^3/uL (4.0-10.5)
[2023-03-02 05:03] LABS: ALBUMIN 3.9 g/dL (3.5-5.0); ALKALINE PHOSPHATASE 80 U/L (38-126); ANION GAP 10.9 MEQ/L (5-15); BLOOD UREA NITROGEN 7 mg/dL (7-17); CHLORIDE 107 mmol/L (98-107); Calcium 8.5 mg/dL (8.4-10.2); Carbon Dioxide 25 mmol/L (22-30); Creatinine 1 0.73 mg/dL (0.52-1.04); EST GLOMERULAR FILTRATION RATE > 60.0 ML/MIN; Glucose 85 mg/dL (74-106); Potassium 3.9 mmol/L (3.5-5.1); SGOT/AST 36 U/L (14-36); SGPT/ALT 55 U/L (0-35); SODIUM 139 mmol/L (137-145); Total Protein 6.9 g/dL (6.3-8.2)
[2023-03-02] MEDS ORDERED: Ativan 2 MG/1 ML VIAL IV ONE (08:17)
[2023-03-02] MEDS: PROTONIX 40 MG IV IV SCH (09:12)
[2023-03-02] MEDS ORDERED: ROCEPHIN 1 Gm-D5w 50 ml Bag** 1 G/50 ML IVPB IV SCH (10:00)
--- NOTE | 2023-03-02 12:15 | PCM.DS ---
Discharge Summary Date of Admission: 03/01/23 13:12 Date of Discharge: 03/02/23 Admitting Physician: USHA GODINEZ MD Primary Care Provider: ANNE ROSA MARIA FRED Allergies Allergies lisinopril Allergy (Intermediate, Verified 03/01/23 09:14) Cough Hospital Summary - Hospital Course Hospital Course: is a 27 year old female with a pmhx of anxiety/depression, HTN, GERD, and h/o GB disease who presented to the ED 03/01/23 with complaints of chills, abdominal pain, nausea, vomiting, and diarrhea. Patient reports onset of symptoms was 02/25/23. She endorses since onset she has had multiple episodes of vomiting as well as greater than 3 watery bowel movements per day. Today she states she had blood-tinged vomit and noticed her stools have become dark with tar-like consistency. She has taken immodium at home which has helped some. Denies fever, cough, sob, cp, MOORE, N/V/D. Denies sick contacts. In ER patient mildly tachycardic, normotensive, and afebrile. CT of the abdomen and pelvis unremarkable for acute findings however a re-identified small fat containing umbilical hernia was noted. Lab interpretation remarkable for microcytic, hypoch romic anemia with Hgb at 11.9 which appears to be close to baseline. Additional lab findings include Gap at 16.4, AST at 48, ALT at 71. UA mildly suspicious for UTI with small leukocytes and 6-10 microscopic WBC's and moderate blood. Blood cultures drawn and pending. Patient received a fluid bolus, Rocephin, zofran, and fentanyl. Patient improved overnight, labs/vitals stable, hgb stable, stools for occult blood and cdiff negative. Will discharge patient with advisement of close follow up with PCP. Will send home on protonix 40mg po bid as well as cefdinir. Will continue to follow culture, will contact if changes to abx are needed. -New Diagnoses: UTI -New Medications: Cefdinir/ protonix/zofran -Medications Discontinued: omeprazole -Follow up: PCP -Results pending: bcult/urine cult -Outpatient testing to order: none -Latest Assessment and Plan: (1) UTI (urinary tract infection) Current Visit: Yes Status: Acute Assessment & Plan: -Mildly suspicious, will start empirically on Rocephin, follow culture Code(s): N39.0 - URINARY TRACT INFECTION, SITE NOT SPECIFIED (2) Diarrhea Current Visit: Yes Status: Acute Assessment & Plan: -Stool Culture, CDiff, O&P, Giardia -Occult stool -CLD ADAT Code(s): R19.7 - DIARRHEA, UNSPECIFIED (3) Nausea & vomiting Current Visit: Yes Status: Acute Assessment & Plan: -Zofran prn Code(s): R11.2 - NAUSEA WITH VOMITING, UNSPECIFIED (4) Anemia Current Visit: Yes Status: Acute Assessment & Plan: -Appears chronic, will add iron studies, ferritin, b12/fol -H&H Q8H -Stools for occult blood Code(s): D64.9 - ANEMIA, UNSPECIFIED (5) Umbilical hernia Current Visit: No Status: Acute Assessment & Plan: -Noted, add complexity, identified on previous CT imaging I spent 45 minutes [id number] with the patient on the day of discharge performing discharge exam, discussing hospital stay and discharge instructions with patient & caregivers, preparation of discharge records, prescriptions & referral forms and addressing any questions/concerns the patient had as documented above. - Vitals & Intake/Output Vital Signs: Vital Signs Temperature 97.9 F 03/02/23 12:00 Pulse Rate 102 H 03/02/23 12:00 Respiratory Rate 16 03/02/23 12:00 Blood Pressure 102/63 03/02/23 12:00 O2 Sat by Pulse Oximetry 99 03/02/23 12:00 Intake & Output: Intake & Output 02/28/23 03/01/23 03/02/23 03/03/23 11:59 11:59 11:59 11:59 Intake Total 3094 Balance 3094 Weight 92.7 kg 94.6 kg - Lab Result Diagrams: 03/02/23 04:43 03/02/23 04:43 Lab Results-Last 24 Hrs: Lab Results-Last 24 Hours 03/01/23 03/01/23 03/01/23 Range/Units 09:30 09:30 19:00 WBC (4.0-10.5) x10^3/uL RBC (4.1-5.4) x10^6/uL Hgb (12.0-16.0) g/dL Hct (35-47) % MCV (78-100) fL MCH (26-32) pg MCHC (32-36) g/dL RDW (11.5-14.0) % Plt Count (150-450) x10^3/uL MPV (7.5-11.0) fL Sodium (137-145) mmol/L Potassium (3.5-5.1) mmol/L Chloride (98-107) mmol/L Carbon Dioxide (22-30) mmol/L Anion Gap (5-15) MEQ/L BUN (7-17) mg/dL Creatinine (0.52-1.04) mg/dL Estimated GFR ML/MIN Glucose (74-106) mg/dL Calcium (8.4-10.2) mg/dL Iron 51 (37-170) ug/dL Ferritin 38.3 (6.24-137) ng/mL Total Bilirubin (0.2-1.3) mg/dL AST (14-36) U/L ALT (0-35) U/L Alkaline Phosphatase (38-126) U/L Serum Total Protein (6.3-8.2) g/dL Albumin (3.5-5.0) g/dL Vitamin B12 916 (239-931) pg/mL Stl Occult Blood (IFOB) NEGATIVE (NEGATIVE) C. difficile Screen (NEGATIVE) C.difficile [id number] (NEGATIVE) 03/01/23 03/02/23 03/02/23 Range/Units 19:00 04:43 04:43 WBC 6.1 (4.0-10.5) x10^3/uL RBC 4.87 (4.1-5.4) x10^6/uL Hgb 11.1 L (12.0-16.0) g/dL Hct 35.8 (35-47) % MCV 73.5 L (78-100) fL MCH 22.8 L (26-32) pg MCHC 31.0 L (32-36) g/dL RDW 17.2 H (11.5-14.0) % Plt Count 268 (150-450) x10^3/uL MPV 8.8 (7.5-11.0) fL Sodium 139 (137-145) mmol/L Potassium 3.9 (3.5-5.1) mmol/L Chloride 107 (98-107) mmol/L Carbon Dioxide 25 (22-30) mmol/L Anion Gap 10.9 (5-15) MEQ/L BUN 7 (7-17) mg/dL Creatinine 0.73 (0.52-1.04) mg/dL Estimated GFR > 60.0 ML/MIN Glucose 85 (74-106) mg/dL Calcium 8.5 (8.4-10.2) mg/dL Iron (37-170) ug/dL Ferritin (6.24-137) ng/mL Total Bilirubin 0.30 (0.2-1.3) mg/dL AST 36 (14-36) U/L ALT 55 H (0-35) U/L Alkaline Phosphatase 80 (38-126) U/L Serum Total Protein 6.9 (6.3-8.2) g/dL Albumin 3.9 (3.5-5.0) g/dL Vitamin B12 (239-931) pg/mL Stl Occult Blood (IFOB) (NEGATIVE) C. difficile Screen NEGATIVE (NEGATIVE) C.difficile [id number] PRESUMPTIVE NEGATIVE (NEGATIVE) Micro Results-Entire Visit: Microbiology 03/01/23 Unknown Stool Culture Result 1 - Final Stool Not Reportable Stool Culture Result 2 - Final Not Reportable Stool Culture Result 3 - Final Not Reportable Stool Culture Result 4 - Final Not Reportable Stool Culture Organism Suscept - Final Not Reportable Campylobacter Result 1 - Final Not Reportable Campylobacter Result 2 - Final Not Reportable Campylobactor Result 3 - Final Not Reportable Campylobacter Result 4 - Final Not Reportable Campylobactor Susceptibility - Final Not Reportable - Radiology Exams Ordered Rad Exams-Entire Visit: Radiology Procedures Category Date Time Status ABDOMEN AND PELVIS W/0 CONTRAS [CT] Stat Exams 03/01/23 10:36 Completed Discharge Exam General Appearance: no apparent distress Neurologic Exam: alert, oriented x 3, cooperative Eye Exam: PERRL Neck Exam: normal inspection Respiratory Exam: normal breath sounds Cardiovascular Exam: regular rate/rhythm, normal heart sounds Gastrointestinal/Abdomen Exam: soft, normal bowel sounds Pelvic Exam: deferred Rectal Exam: deferred Back Exam: normal inspection Extremity Exam: normal inspection Skin Exam: pale Final Diagnosis/Problem List - Final Discharge Diagnosis/Problem (1) UTI (urinary tract infection) Current Visit: Yes Status: Acute Code(s): N39.0 - URINARY TRACT INFECTION, SITE NOT SPECIFIED (2) Diarrhea Current Visit: Yes Status: Acute Code(s): R19.7 - DIARRHEA, UNSPECIFIED (3) Nausea & vomiting Current Visit: Yes Status: Acute Code(s): R11.2 - NAUSEA WITH VOMITING, UNSPECIFIED (4) Anemia Current Visit: Yes Status: Acute Code(s): D64.9 - ANEMIA, UNSPECIFIED (5) Umbilical hernia Current Visit: No Status: Acute Code(s): K42.9 - UMBILICAL HERNIA WITHOUT OBSTRUCTION OR GANGRENE - Discharge Disposition: Home, Self-Care Condition: Stable Prescriptions: New Cefdinir 300 mg PO BID 5 Days #10 cap PANTOPRAZOLE 40 mg Tablet [Protonix 40MG Tablet] 40 mg PO DAILY 30 Days #60 tab Ondansetron ODT 4 MG [Zofran Odt 4 mg] 4 mg PO Q6H PRN PRN #10 tablet PRN Reason: Nausea Continue Venlafaxine HCl ER 75 mg [Effexor XR 75 MG] 1 cap PO HS Spironolactone 25 mg [Aldactone 25 MG] 100 mg PO HS Losartan Potassium 50 mg [Cozaar 50 MG] 50 mg PO QHS Melatonin 10 mg PO QHS Loratadine 10 mg [Claritin 10 mg] 10 mg PO QHS Discontinued Omeprazole 40 mg PO QHS Instructions: Urinary Tract Infection, Adult (DC) Follow up with: ANNE IBARRA NP [Primary Care Provider] - 03/09/23 9:00 am Forms: Discharge Instructions
[2023-03-02 14:31] VITALS: BP 102/63; PULSE 102; TEMP 97.9; O2SAT 99
== END 2023-03-02 12:27 | disposition home or self-care (01) ==
LOC: ED 09:09 → MED SURG 13:12
PROVIDERS: ADMIT Internal Medicine; ATTEND Internal Medicine
DX: N39.0 Urinary tract infection, site not specified (principal); R19.7 Diarrhea, unspecified; R11.2 Nausea with vomiting, unspecified; D64.9 Anemia, unspecified; K42.9 Umbilical hernia without obstruction or gangrene; I10 Essential (primary) hypertension; E28.2 Polycystic ovarian syndrome; Z79.899 Other long term (current) drug therapy; Z20.828 Contact with and (suspected) exposure to other viral communicable diseases
CPT/HCPCS: 0241U; 36000; 36415; 74176; 80053; 81001; 82150; 82274; 82607; 82728; 83540; 83605; 83690; 84703; 85025; 85027; 87040; 87086; 87493; 96374; 96375; 96376; 99285; G0378; J0696; J2060; J2405; J3010; Q3014; A9270-GY; G0328

== ENCOUNTER 2023-04-12 06:21 | Emergency (ER) | payer OTHER ==
[2023-04-12 06:40] VITALS: TEMP 97.5
[2023-04-12] MEDS ORDERED: Zofran 4 MG/2 ML VIAL IV ONE (06:45)
[2023-04-12] MEDS ORDERED: Zofran 4 MG/2 ML VIAL ONE (06:45)
[2023-04-12] MEDS ORDERED: Pepcid 20 MG VIAL IV ONE ×2 (06:48→06:54)
[2023-04-12] MEDS ORDERED: TYLENOL 325 MG PO STA (06:49)
[2023-04-12] MEDS ORDERED: GI COCKTAIL 45 ML (Maalox/Lidocaine) PO ONE (06:50)
[2023-04-12] MEDS ORDERED: TYLENOL 325 MG ONE (06:54)
[2023-04-12] MEDS ORDERED: XYLOCAINE VISCOUS 2% 15 ML CUP ONE (06:55)
[2023-04-12] MEDS ORDERED: MAALOX ES 30 ML UNIT DOSE ONE (06:56)
[2023-04-12 07:08] LABS: HCG URINE TEST NEGATIVE (NEGATIVE)
[2023-04-12 07:12] LABS: Appearance Cloudy (Clear); Bacteria Few /HPF (None Seen); Bilirubin Negative (Negative); Blood Negative (Negative); Epithelial Cells Moderate /HPF (None Seen); Glucose, Urine Negative (Negative); Hyaline Casts NONE SEEN /LPF (0-2); Ketones Trace (Negative); Leukocyte Esterase Small (Negative); Nitrite Negative (Negative); Ph 5.5 (4.6-8.0); Protein,Urine Dip Negative (Negative)
[2023-04-12 07:13] LABS: ADD URINE CULTURE? YES (NO)
[2023-04-12 07:22] LABS: ALBUMIN 4.4 g/dL (3.5-5.0); ALKALINE PHOSPHATASE 128 U/L (38-126); ANION GAP 10.4 MEQ/L (5-15); BLOOD UREA NITROGEN 9 mg/dL (7-17); CHLORIDE 104 mmol/L (98-107); Calcium 8.8 mg/dL (8.4-10.2); Carbon Dioxide 25 mmol/L (22-30); Creatinine 1 0.66 mg/dL (0.52-1.04); EST GLOMERULAR FILTRATION RATE > 60.0 ML/MIN; Glucose 125 mg/dL (74-106); LIPASE 75 U/L (23-300); Potassium 3.4 mmol/L (3.5-5.1); SGOT/AST 215 U/L (14-36); SGPT/ALT 154 U/L (0-35); SODIUM 136 mmol/L (137-145); Total Protein 7.8 g/dL (6.3-8.2)
[2023-04-12 07:34] LABS: NT PRO BNPII < 20.0 pg/mL (<300); TROPONIN < 0.012 ng/mL (0.000-0.034)
[2023-04-12 07:56] LABS: Absolute Neutrophil Ct (ANC) 4.52 x10^3/uL (1.4-6.9); BASOPHIL % 0.3 % (0.0-0.4); Basophil (Absolute #) 0.02 x10^3/uL (0-0.4); Eosinophil (Absolute #) 0 x10^3/uL (0-0.5); Hematocrit 39.5 % (35-47); Hemoglobin 12.1 g/dL (12.0-16.0); IMMATURE GRAN # 0.02 x10^3u/L (0.00-0.03); IMMATURE GRAN % 0.3 % (0.00-0.4); Lymphocyte (Absolute #) 0.92 x10^3/uL (1.0-4.6); Lymphocytes % 15.5 % (24.0-44.0); Mean Corpuscular Hemoglobin 22.4 pg (26-32); Mean Corpuscular Hgb Concent. 30.6 g/dL (32-36); Mean Platelet Volume 9.9 fL (7.5-11.0); Monocyte (Absolute #) 0.46 x10^3/uL (0.0-1.3); Monocytes % 7.7 % (0.0-12.0); Neutrophil % 76.2 % (36.0-66.0); Platelet Count 270 x10^3/uL (150-450); Red Blood Count 5.41 x10^6/uL (4.1-5.4); Red Cell Distribution Width 16.5 % (11.5-14.0); White Blood Count 5.9 x10^3/uL (4.0-10.5)
[2023-04-12] MEDS ORDERED: MORPHINE SULFATE 4 MG INJ IV ONE (08:21)
[2023-04-12] MEDS ORDERED: MORPHINE SULFATE 4 MG INJ ONE (08:22)
--- NOTE | 2023-04-12 08:42 | XRAY ---
Indication: Chest pain. Comparison: None Portable chest demonstrates normal heart, lungs, and bony thorax.
--- NOTE | 2023-04-12 08:42 | XRAY ---
Indication: Chest pain. Elevated d-dimer. Multiple contiguous axial images obtained through the chest using 100 cc Isovue 370 contrast and PE protocol. Comparison: None Good opacification of the pulmonary arteries to include the lobar and segmental branches. No pulmonary embolus. Heart not enlarged. Aorta is normal in course and caliber. No pathologic mediastinal/hilar lymphadenopathy. Small hiatal hernia. Lungs inflated and clear. Bony thorax intact. Limited upper abdomen demonstrates fatty liver. Impression: Small hiatal hernia and fatty liver. Remaining CT chest PE exam is normal.
[2023-04-12] MEDS ORDERED: PROTONIX 40 MG IV IV ONE ×2 (08:47→08:48)
[2023-04-12 10:04] VITALS: O2SAT 97
--- NOTE | 2023-04-12 10:56 | ERPHSYRPT ---
- History of Present Illness Time Seen by Provider: 04/12/23 08:20 Historian: patient Exam Limitations: no limitations Patient Subjective Stated Complaint: pt states at approx 0530 she was sitting on the cough then suddenly vomited bile like emesis x1 and started having CP located lower left medial sternal that radiates to left neck and right chest. described as constant sharp throbbing and rated 8/10 and continuing to increase. Triage Nursing Assessment: pt ambulated to room 9 after standing on scale for weight acquisition and to restroom for urine sample collection. pt is alert and oriented times three, able to speak in complete sentences, able to move all extremities, and with resp even and unlabored without use of accessory muscles. states that she has intermittently been dizzy and continues to be nauseated. states that she feels a little short of breath. heart tones auscultated and are present and regular. bilat anterior lung sounds clear throughout. bilat radial and pedal pulses palpable. no JVD or edema noted. denies numbness or tingling and all extremities with color, cap refill, temperature, and sensation all within normal limits. pt denies fever, cough, chills, difficulty with urination or bowel elimination, change in appetite. denies having ever had this type of pain in the past. Physician History: 27-year-old female with history of GERD, anxiety, hypertension presented in the ER with chief complaint of substernal chest pain. Patient reports around 5:30 AM today she was sitting getting ready for work, started coughing and got nauseated and vomited times once. Patient reports dull aching to sharp pain substernal area without any significant aggravating or relieving factors with mi ld shortness of breath associated with it. Patient denies any abdominal pain. No nausea or vomiting reported. Does have history of cholecystectomy. No fever chills or sick contact reported. Patient is very anxious, EKG showed sinus tach at a rate of 110 bpm with no acute ST elevations or depressions. She has been given Pepcid and GI cocktail along with morphine, on reevaluation her pain is better but not completely resolved. Has normal white count, chemistries showed normal lipase but ALT AST in 200s and patient does not have any right upper quadrant tenderness. No history of feeling malaise fever chills. I have obtain D-dimer which are elevated and CTA is negative for PE but did show small hiatal hernia. Patient continued to have pain and is given IV Protonix and her pain is completely resolved. Second troponins are negative. Patient is low heart score, do not think needs admission and further work-up as her pain seems more of a GERD esophagitis/hiatal hernia related. She is started on Carafate. She is advised to have outpatient follow-up with her primary care for reevaluation and also recheck of her liver enzymes. No COVID symptoms. Discussed signs symptoms of worsening needing return to ER which she seems understanding. Stable for discharge. Nitro Today/Relief: no nitro taken today Aspirin Treatment Today: no aspirin today Allergies/Adverse Reactions: lisinopril Adverse Reaction (Intermediate, Verified 04/12/23 06:23) Cough Home Medications: Venlafaxine HCl ER 75 mg [Effexor XR 75 MG] 1 cap PO HS 12/02/21 [History] Losartan Potassium 50 mg [Cozaar 50 MG] 50 mg PO QHS 11/02/22 [History] Loratadine 10 mg [Claritin 10 mg] 10 mg PO QHS 03/01/23 [History] Melatonin 10 mg PO QHS 03/01/23 [History] Omeprazole 40 mg PO HS 04/12/23 [History] Hx Tetanus, Diphtheria Vaccination/Date Given: Yes Hx Influenza Vaccination/Date Given: Yes (2021) Hx Pneumococcal Vaccination/Date Given: No Immunizations Up to Date: Yes Travel Risk - International Travel Have you traveled outside of the country in past 3 weeks: No - Coronavirus Screening Are you exhibiting any of the following symptoms?: No Close contact with a COVID-19 positive Pt in past 14-21 Days: No - Vaccine Status Have you recieved a Covid-19 vaccination: Yes [employer]: Moderna - Vaccination Dates Date of 2cond Vaccination (if applicable): 2020 - Review of Systems Constitutional: No Symptoms Eyes: No Symptoms Ears, Nose, & Throat: No Symptoms Respiratory: Dyspnea Cardiac: Chest Pain Abdominal/Gastrointestinal: Nausea, Vomiting Genitourinary Symptoms: No Symptoms Musculoskeletal: No Symptoms Skin: No Symptoms Neurological: No Symptoms Psychological: Anxiety Endocrine: No Symptoms Hematologic/Lymphatic: No Symptoms Immunological/Allergic: No Symptoms - Past Medical History Pertinent Past Medical History: Yes Neurological History: No Pertinent History ENT History: No Pertinent History Cardiac History: Hypertension, No Pertinent History Respiratory History: Asthma Endocrine Medical History: No Pertinent History Musculoskeletal History: No Pertinent History GI Medical History: GERD, Gallbladder Disease History: No Pertinent History Psycho-Social History: Depression, Anxiety Female Reproductive Disorders: Other Other Medical History: PCOS - Past Surgical History Past Surgical History: Yes Neuro Surgical History: No Pertinent History Cardiac: No Pertinent History Respiratory: No Pertinent History Gastrointestinal: Cholecystectomy Genitourinary: No Pertinent History Musculoskeletal: No Pertinent History Female Surgical History: No Pertinent History - Social History Smoking Status: Never smoker Exposure to second hand smoke: No Drug Use: none Patient Lives Alone: No - Female History Hx Last Menstrual Period: 03/29/2023 Hx Now: No - Nursing Vital Signs Nursing Vital Signs: Initial Vital Signs Temperature 97.5 F 04/12/23 06:27 Pulse Rate 110 H 04/12/23 06:27 Respiratory Rate 16 04/12/23 06:27 Blood Pressure 116/73 04/12/23 06:27 O2 Sat by Pulse Oximetry 97 04/12/23 06:27 Pain Scale Pain Intensity 1 - Physical Exam General Appearance: no apparent distress, alert Eye Exam: PERRL/EOMI Ears, Nose, Throat Exam: normal ENT inspection Neck Exam: normal inspection, non-tender, supple, carotid bruit Respiratory Exam: normal breath sounds, lungs clear Cardiovascular Exam: normal heart sounds, tachycardia Gastrointestinal/Abdomen Exam: soft, normal bowel sounds, tenderness (Minimal epigastric discomfort on deep palpation) Back Exam: normal inspection, normal range of motion Extremity Exam: normal inspection, normal range of motion Neurologic Exam: alert, oriented x 3, cooperative, manager managing II-XII nml as tested Skin Exam: normal color SpO2 Interpretation: normal SpO2: 97 O2 Delivery: Room Air - Course EKG Interpreted by Me: RATE (110), Sinus Tach, NORMAL AXIS, NORMAL INTERVALS, NORMAL QRS Ordered Tests: Active Orders 24 hr Category Date Time Status Continuous Absorption Process Operator STAT Care 04/12/23 06:45 Completed EKG-ER Only STAT Care 04/12/23 06:44 Completed IV Insertion STAT Care 04/12/23 06:44 Completed CHEST 1 VIEW (PORTABLE) Stat Exams 04/12/23 06:44 Completed CHEST WITH CONTRAST [CT] Stat Exams 04/12/23 07:39 Completed CBC W DIFF Stat Lab 04/12/23 06:35 Completed CMP Stat Lab 04/12/23 06:35 Completed CULTURE,URINE Stat Lab 04/12/23 06:45 Received D-DIMER QUANTITATIVE Stat Lab 04/12/23 06:35 Completed HCG QUALITATIVE, URINE Stat Lab 04/12/23 07:03 Completed LIPASE Stat Lab 04/12/23 06:35 Completed NT PRO BNPII Stat Lab 04/12/23 06:35 Completed TROPONIN Q4H Lab 04/12/23 06:35 Completed TROPONIN Q4H Lab 04/12/23 10:17 Completed UA W/RFX UR CULTURE Stat Lab 04/12/23 06:45 Completed Medication Summary Discontinued Medications Generic Name Dose Route Start Last Admin Trade Name Freq PRN Reason Stop Dose Admin Acetaminophen 975 mg 04/12/23 06:49 04/12/23 06:58 Acetaminophen 325 Mg Tablet PO 04/12/23 06:50 975 mg STAT STA Administration Acetaminophen Confirm 04/12/23 06:54 Acetaminophen 325 Mg Tablet Administered 04/12/23 06:55 Dose 975 mg .ROUTE .STK-MED ONE Al Hydrox/Mg Hydrox/Simethicone Confirm 04/12/23 06:56 Mag Hydrox/Al Hydrox/Simeth 30 Ml Udcup Administered 04/12/23 06:57 Dose 30 ml .ROUTE .STK-MED ONE Famotidine 20 mg 04/12/23 06:48 04/12/23 06:59 Famotidine 20 Mg/1 Vial IV 04/12/23 06:49 20 mg STAT ONE Administration Famotidine Confirm 04/12/23 06:54 Famotidine 20 Mg/1 Vial Administered 04/12/23 06:55 Dose 20 mg IV .STK-MED ONE Lidocaine HCl Confirm 04/12/23 06:55 Lidocaine Hcl 2% Viscous 15 Ml Udcup Administered 04/12/23 06:56 Dose 15 ml .ROUTE .STK-MED ONE Magnesium Hydroxide 45 ml 04/12/23 06:50 04/12/23 06:58 Mag Hydrx/Alum Hyd/Simeth/Lido 45 Ml Bottle PO 04/12/23 06:51 45 ml STAT ONE Administration Morphine Sulfate 4 mg 04/12/23 08:21 04/12/23 08:24 Morphine Sulfate 4 Mg/Ml Injection IV 04/12/23 08:22 4 mg STAT ONE Administration Morphine Sulfate Confirm 04/12/23 08:22 Morphine Sulfate 4 Mg/Ml Injection Administered 04/12/23 08:23 Dose 4 mg .ROUTE .STK-MED ONE Ondansetron HCl 4 mg 04/12/23 06:45 04/12/23 06:47 Ondansetron Hcl 4 Mg/2 Ml Vial IV 04/12/23 06:46 4 mg STAT ONE Administration Ondansetron HCl Confirm 04/12/23 06:45 Ondansetron Hcl 4 Mg/2 Ml Vial Administered 04/12/23 06:46 Dose 4 mg .ROUTE .STK-MED ONE Pantoprazole Sodium 40 mg 04/12/23 08:47 04/12/23 08:49 Pantoprazole 40 Mg Vial IV 04/12/23 08:48 40 mg STAT ONE Administration Pantoprazole Sodium Confirm 04/12/23 08:48 Pantoprazole 40 Mg Vial Administered 04/12/23 08:49 Dose 40 mg IV .STK-MED ONE Lab/Rad Data: Laboratory Result Diagrams 04/12/23 06:35 04/12/23 06:35 Laboratory Results 04/12/23 04/12/23 04/12/23 Range/Units 10:17 07:03 06:45 WBC (4.0-10.5) x10^3/uL RBC (4.1-5.4) x10^6/uL Hgb (12.0-16.0) g/dL Hct (35-47) % MCV (78-100) fL MCH (26-32) pg MCHC (32-36) g/dL RDW (11.5-14.0) % Plt Count (150-450) x10^3/uL MPV (7.5-11.0) fL Gran % (36.0-66.0) % Immature Gran % (Auto) (0.00-0.4) % Nucleat RBC Rel Count (0.00-0.1) % Eos # (Auto) (0-0.5) x10^3/uL Immature Gran # (Auto) (0.00-0.03) x10^3u/L Absolute Lymphs (auto) (1.0-4.6) x10^3/uL Absolute Monos (auto) (0.0-1.3) x10^3/uL Absolute Nucleated RBC (0.00-0.01) x10^3u/L Lymphocytes % (24.0-44.0) % Monocytes % (0.0-12.0) % Eosinophils % (0.00-5.0) % Basophils % (0.0-0.4) % Absolute Granulocytes (1.4-6.9) x10^3/uL Basophils # (0-0.4) x10^3/uL D-Dimer (0.0-0.50) mg/L Sodium (137-145) mmol/L Potassium (3.5-5.1) mmol/L Chloride (98-107) mmol/L Carbon Dioxide (22-30) mmol/L Anion Gap (5-15) MEQ/L BUN (7-17) mg/dL Creatinine (0.52-1.04) mg/dL Estimated GFR ML/MIN Glucose (74-106) mg/dL Calcium (8.4-10.2) mg/dL Total Bilirubin (0.2-1.3) mg/dL AST (14-36) U/L ALT (0-35) U/L Alkaline Phosphatase (38-126) U/L Troponin I < 0.012 (0.000-0.034) ng/mL NT-Pro-B Natriuret Pep (<300) pg/mL Serum Total Protein (6.3-8.2) g/dL Albumin (3.5-5.0) g/dL Lipase (23-300) U/L Urine Color Yellow (Yellow) Urine Appearance Cloudy A (Clear) Urine pH 5.5 (4.6-8.0) Ur Specific Cora 1.020 (1.005-1.030) Urine Protein Negative (Negative) Urine Glucose (UA) Negative (Negative) mg/dL Urine Ketones Trace A (Negative) Urine Blood Negative (Negative) Urine Nitrite Negative (Negative) Urine Bilirubin Negative (Negative) Urine Urobilinogen 1.0 A (0.2) mg/dL Ur Leukocyte Esterase Small A (Negative) U Hyaline Cast (Auto) NONE SEEN (0-2) /LPF Urine Microscopic RBC 3-5 (0-5) /HPF Urine Microscopic WBC 11-20 A (0-5) /HPF Ur Epithelial Cells Moderate A (None Seen) /HPF Urine Bacteria Few A (None Seen) /HPF Urine Culture Reflexed YES (NO) Urine HCG, Qual NEGATIVE (NEGATIVE) 04/12/23 04/12/23 04/12/23 Range/Units 06:35 06:35 06:35 WBC (4.0-10.5) x10^3/uL RBC (4.1-5.4) x10^6/uL Hgb (12.0-16.0) g/dL Hct (35-47) % MCV (78-100) fL MCH (26-32) pg MCHC (32-36) g/dL RDW (11.5-14.0) % Plt Count (150-450) x10^3/uL MPV (7.5-11.0) fL Gran % (36.0-66.0) % Immature Gran % (Auto) (0.00-0.4) % Nucleat RBC Rel Count (0.00-0.1) % Eos # (Auto) (0-0.5) x10^3/uL Immature Gran # (Auto) (0.00-0.03) x10^3u/L Absolute Lymphs (auto) (1.0-4.6) x10^3/uL Absolute Monos (auto) (0.0-1.3) x10^3/uL Absolute Nucleated RBC (0.00-0.01) x10^3u/L Lymphocytes % (24.0-44.0) % Monocytes % (0.0-12.0) % Eosinophils % (0.00-5.0) % Basophils % (0.0-0.4) % Absolute Granulocytes (1.4-6.9) x10^3/uL Basophils # (0-0.4) x10^3/uL D-Dimer 1.05 H* (0.0-0.50) mg/L Sodium 136 L (137-145) mmol/L Potassium 3.4 L (3.5-5.1) mmol/L Chloride 104 (98-107) mmol/L Carbon Dioxide 25 (22-30) mmol/L Anion Gap 10.4 (5-15) MEQ/L BUN 9 (7-17) mg/dL Creatinine 0.66 (0.52-1.04) mg/dL Estimated GFR > 60.0 ML/MIN Glucose 125 H (74-106) mg/dL Calcium 8.8 (8.4-10.2) mg/dL Total Bilirubin 0.80 (0.2-1.3) mg/dL AST 215 H (14-36) U/L ALT 154 H (0-35) U/L Alkaline Phosphatase 128 H (38-126) U/L Troponin I < 0.012 (0.000-0.034) ng/mL NT-Pro-B Natriuret Pep < 20.0 (<300) pg/mL Serum Total Protein 7.8 (6.3-8.2) g/dL Albumin 4.4 (3.5-5.0) g/dL Lipase 75 (23-300) U/L Urine Color (Yellow) Urine Appearance (Clear) Urine pH (4.6-8.0) Ur Specific Cora (1.005-1.030) Urine Protein (Negative) Urine Glucose (UA) (Negative) mg/dL Urine Ketones (Negative) Urine Blood (Negative) Urine Nitrite (Negative) Urine Bilirubin (Negative) Urine Urobilinogen (0.2) mg/dL Ur Leukocyte Esterase (Negative) U Hyaline Cast (Auto) (0-2) /LPF Urine Microscopic RBC (0-5) /HPF Urine Microscopic WBC (0-5) /HPF Ur Epithelial Cells (None Seen) /HPF Urine Bacteria (None Seen) /HPF Urine Culture Reflexed (NO) Urine HCG, Qual (NEGATIVE) 04/12/23 Range/Units 06:35 WBC 5.9 (4.0-10.5) x10^3/uL RBC 5.41 H (4.1-5.4) x10^6/uL Hgb 12.1 (12.0-16.0) g/dL Hct 39.5 (35-47) % MCV 73.0 L (78-100) fL MCH 22.4 L (26-32) pg MCHC 30.6 L (32-36) g/dL RDW 16.5 H (11.5-14.0) % Plt Count 270 (150-450) x10^3/uL MPV 9.9 (7.5-11.0) fL Gran % 76.2 H (36.0-66.0) % Immature Gran % (Auto) 0.3 (0.00-0.4) % Nucleat RBC Rel Count 0.0 (0.00-0.1) % Eos # (Auto) 0 (0-0.5) x10^3/uL Immature Gran # (Auto) 0.02 (0.00-0.03) x10^3u/L Absolute Lymphs (auto) 0.92 L (1.0-4.6) x10^3/uL Absolute Monos (auto) 0.46 (0.0-1.3) x10^3/uL Absolute Nucleated RBC 0.00 (0.00-0.01) x10^3u/L Lymphocytes % 15.5 L (24.0-44.0) % Monocytes % 7.7 (0.0-12.0) % Eosinophils % 0.0 (0.00-5.0) % Basophils % 0.3 (0.0-0.4) % Absolute Granulocytes 4.52 (1.4-6.9) x10^3/uL Basophils # 0.02 (0-0.4) x10^3/uL D-Dimer (0.0-0.50) mg/L Sodium (137-145) mmol/L Potassium (3.5-5.1) mmol/L Chloride (98-107) mmol/L Carbon Dioxide (22-30) mmol/L Anion Gap (5-15) MEQ/L BUN (7-17) mg/dL Creatinine (0.52-1.04) mg/dL Estimated GFR ML/MIN Glucose (74-106) mg/dL Calcium (8.4-10.2) mg/dL Total Bilirubin (0.2-1.3) mg/dL AST (14-36) U/L ALT (0-35) U/L Alkaline Phosphatase (38-126) U/L Troponin I (0.000-0.034) ng/mL NT-Pro-B Natriuret Pep (<300) pg/mL Serum Total Protein (6.3-8.2) g/dL Albumin (3.5-5.0) g/dL Lipase (23-300) U/L Urine Color (Yellow) Urine Appearance (Clear) Urine pH (4.6-8.0) Ur Specific Cora (1.005-1.030) Urine Protein (Negative) Urine Glucose (UA) (Negative) mg/dL Urine Ketones (Negative) Urine Blood (Negative) Urine Nitrite (Negative) Urine Bilirubin (Negative) Urine Urobilinogen (0.2) mg/dL Ur Leukocyte Esterase (Negative) U Hyaline Cast (Auto) (0-2) /LPF Urine Microscopic RBC (0-5) /HPF Urine Microscopic WBC (0-5) /HPF Ur Epithelial Cells (None Seen) /HPF Urine Bacteria (None Seen) /HPF Urine Culture Reflexed (NO) Urine HCG, Qual (NEGATIVE) - Progress Progress: improved, re-examined Air Movement: good Progress Note: 04/12/23 10:53 27-year-old female with history of GERD, anxiety, hypertension presented in the ER with chief complaint of substernal chest pain. Patient reports around 5:30 AM today she was sitting getting ready for work, started coughing and got nause ated and vomited times once. Patient reports dull aching to sharp pain substernal area without any significant aggravating or relieving factors with mild shortness of breath associated with it. Patient denies any abdominal pain. No nausea or vomiting reported. Does have history of cholecystectomy. No fever chills or sick contact reported. Patient is very anxious, EKG showed sinus tach at a rate of 110 bpm with no acute ST elevations or depressions. She has been given Pepcid and GI cocktail along with morphine, on reevaluation her pain is better but not completely resolved. Has normal white count, chemistries showed normal lipase but ALT AST in 200s and patient does not have any right upper quadrant tenderness. No history of feeling malaise fever chills. I have obtain D-dimer which are elevated and CTA is negative for PE but did show small hiatal hernia. Patient continued to have pain and is given IV Protonix and her pain is completely resolved. Second troponins are negative. Patient is low heart score, do not think needs admission and further work-up as her pain seems more of a GERD esophagitis/hiatal hernia related. She is started on Carafate. She is advised to have outpatient follow-up with her primary care for reevaluation and also recheck of her liver enzymes. No COVID symptoms. Discussed signs symptoms of worsening needing return to ER which she seems understanding. Stable for discharge. Blood Culture(s) Obtained: No Antibiotics given: No Counseled pt/family regarding: lab results, diagnosis, need for follow-up, rad results Medical Desision Making - Diagnostic Testing Diagnostic test were ordered, analyzed, and reviewed by me: Yes Radiological Interpretation: Reviewed by me - Risk of complications The pt has a mod risk of morbidity or mortality based on: Need for prescription drug management - Departure Departure Disposition: Home Clinical Impression: Atypical chest pain, Elevated transaminase level, Hiatal hernia Condition: Stable Critical Care Time: No Referrals: ANNE IBARRA NP [Primary Care Provider] - Follow up with PCP 1 day Instructions: Chest Pain (DC) Additional Instructions: Follow-up with primary care for reevaluation and also recheck of your liver functions. Continue with omeprazole and take Carafate along with that. Return to ER for intractable pain/vomiting/fever chills etc. Prescriptions: Sucralfate 1 gm [Carafate 1 GM] 1 g PO ACHS #20 tablet
[2023-04-12 10:58] VITALS: BP 102/63
[2023-04-12 11:05] VITALS: PULSE 91; RESP 17
== END 2023-04-12 11:05 | disposition home or self-care (01) ==
LOC: ED 06:21
DX: R07.89 Other chest pain (principal); R74.01 Elevation of levels of liver transaminase levels; K44.9 Diaphragmatic hernia without obstruction or gangrene; R11.2 Nausea with vomiting, unspecified; I10 Essential (primary) hypertension; Z79.899 Other long term (current) drug therapy
CPT/HCPCS: 36000; 36415; 71045; 71260; 80053; 81001; 81025; 83690; 83880; 84484; 85025; 85379; 87086; 93005; 93041; 96374; 96375; 99284; J2270; J2405; A9270-GY

== ENCOUNTER 2023-04-27 06:01 | Day surgery (SDC) | payer OTHER ==
[2023-04-27 06:29] VITALS: RESP 16
[2023-04-27] MEDS ORDERED: Lactated Ringers 1,000 ML IV SCH (06:30)
[2023-04-27 06:44] LABS: HCG URINE TEST NEGATIVE (NEGATIVE)
[2023-04-27] MEDS ORDERED: Xylocaine-Mpf 2% 5 Ml Vial ONE (07:21)
[2023-04-27] MEDS ORDERED: DIPRIVAN 200 MG/20 ML IV ONE (07:21)
[2023-04-27] MEDS ORDERED: Versed 2 MG/2 ML Injection ONE (07:32)
[2023-04-27 08:10] VITALS: PULSE 98; TEMP 97.6; O2SAT 95
[2023-04-27 08:25] VITALS: BP 98/85
--- NOTE | 2023-04-27 13:16 | OP ---
SURGERY DATE/TIME: 04/27/2023 1894 PREOPERATIVE DIAGNOSIS: Nausea, vomiting and diarrhea for the last two months. POSTOPERATIVE DIAGNOSIS: Mild gastritis. PROCEDURE: Esophagogastroduodenoscopy with cold forceps biopsy of gastric antrum. SURGEON: Dr. Rojas. ANESTHESIA: Medications were given by the anesthesia department. BRIEF HISTORY: The patient is a 27-year-old white female who reports that over the past two months she has had problems with nausea, vomiting and diarrhea somewhat better with Imodium. She also had Zofran to help the nausea but apparently every time she eats she has trouble with her stomach. The patient is noted to be on sucralfate. She takes no other medicines [id number]. DESCRIPTION OF PROCEDURE: The patient was given the medications by the anesthesia department. She had continuous pulse oximetry, ECG monitoring and intermittent blood pressure monitoring during the examination. She was placed in the left lateral decubitus position. A bite block was placed and the flexible Olympus gastroscope was used to intubate the oropharynx. A view of the larynx was obtained and was normal. The scope was easily introduced in the esophagus which appeared to be normal throughout its length. The stomach was entered where normal gastric rugal folds were seen and these distended nicely with insufflation of air. The scope was passed along the greater curvature of the stomach to the antrum. The pylorus was encountered and intubated. The duodenum was inspected and found to be normal. The scope is withdrawn towards the stomach again. A retroflex view was obtained of the lesser curvature, fundus and cardia regions of the stomach and these appeared to be normal. The scope was then redirected towards the gastric antrum and biopsies were obtained from the gastric antrum to rule out the presence of Helicobacter pylori-type organisms. The scope was then removed from the patient who tolerated the procedure well and was sent back to outpatient recovery in good condition.
== END 2023-04-27 08:28 | disposition home or self-care (01) ==
LOC: SDC 06:01
PROVIDERS: ATTEND Family Medicine
DX: K29.70 Gastritis, unspecified, without bleeding (principal); R11.2 Nausea with vomiting, unspecified; R19.7 Diarrhea, unspecified
CPT/HCPCS: 81025; J2250; J2704

== ENCOUNTER 2023-07-22 22:23 | Emergency (ER) | payer SELFPAY ==
[2023-07-22 22:51] VITALS: TEMP 98.4
--- NOTE | 2023-07-22 22:56 | ERPHSYRPT ---
- History of Present Illness Historian: patient Patient Subjective Stated Complaint: pt states that is having increased pain to her rt upper quad. pt states that she has been having this issue since february. pt states that she does not have a gallbladder. pt states she is to meet with a GI specialist on wednesday Triage Nursing Assessment: pt ambulated into the er; pt is axo x4; c/o abd pain; pt states 8/10 pain to RUQ; abd is soft, round, and tender to RUQ; hyperactive bowel sounds in all quads; c/o N/V/D; mucus membranes pink and moist; skin PDW; no respiratory distress present; vitals wnl Physician History: 27 years old female with past medical history of cholecystectomy, chronic abdominal pain that she has been having since February of last year. The patient is presenting to the emergency room complaining of abdominal pain in the right upper quadrant that started at around 1 PM after lunch. The patient initially had loose bowel movement followed by the the right upper quadrant abdominal pain. She felt nauseous and vomited couple of times. She had couple of loose bowel movements after that. The patient have had multiple bouts of abdominal pain in the last 5 months, she had couple of CT scans which were negative, an EGD which was negative and she is supposed to follow-up with GI in [place] next week. She is expecting her menstrual period at any time, she denies any urinary symptoms. No fever or chills. The patient took some Tylenol and ibuprofen for her pain today without much relief. Allergies/Adverse Reactions: lisinopril Adverse Reaction (Intermediate, Verified 07/22/23 22:36) Cough Home Medications: Losartan Potassium 50 mg [Cozaar 50 MG] 50 mg PO QHS 11/02/22 [History] Loratadine 10 mg [Claritin 10 mg] 10 mg PO QHS 03/01/23 [History] Melatonin 10 mg PO QHS 03/01/23 [History] Omeprazole 40 mg PO HS 04/12/23 [History] Dicyclomine HCl 20 mg [Bentyl 20 mg] 20 mg PO QID PRN 07/22/23 [History] Sertraline HCl [Zoloft] 25 mg PO HS 07/22/23 [History] Hx Tetanus, Diphtheria Vaccination/Date Given: Yes Hx Influenza Vaccination/Date Given: Yes Hx Pneumococcal Vaccination/Date Given: No Travel Risk - International Travel Have you traveled outside of the country in past 3 weeks: No - Coronavirus Screening Are you exhibiting any of the following symptoms?: No Close contact with a COVID-19 positive Pt in past 14-21 Days: No - Vaccine Status Have you recieved a Covid-19 vaccination: Yes Mold Bunch Trimmer: Moderna - Vaccination Dates Date of 2cond Vaccination (if applicable): 2020 - Review of Systems Constitutional: No Fever, No Chills Eyes: No Symptoms Ears, Nose, & Throat: No Symptoms Respiratory: No Cough, No Dyspnea Cardiac: No Chest Pain, No Edema, No Syncope Abdominal/Gastrointestinal: Abdominal Pain, Nausea, Vomiting, Diarrhea Genitourinary Symptoms: No Dysuria Musculoskeletal: No Back Pain, No Neck Pain Skin: No Rash Neurological: No Dizziness, No Focal Weakness, No Sensory Changes Psychological: No Symptoms Endocrine: No Symptoms All Other Systems: Reviewed and Negative - Past Medical History Pertinent Past Medical History: Yes Neurological History: No Pertinent History ENT History: No Pertinent History Cardiac History: Hypertension Respiratory History: No Pertinent History Endocrine Medical History: No Pertinent History Musculoskeletal History: Other GI Medical History: GERD, Gallbladder Disease History: No Pertinent History Psycho-Social History: Depression, Anxiety Female Reproductive Disorders: Other Other Medical History: HX TORN QUAD LEFT THIGH - Past Surgical History Past Surgical History: Yes Neuro Surgical History: No Pertinent History Cardiac: No Pertinent History Respiratory: No Pertinent History Gastrointestinal: Cholecystectomy Genitourinary: No Pertinent History Musculoskeletal: No Pertinent History Female Surgical History: No Pertinent History - Social History Smoking Status: Never smoker Exposure to second hand smoke: Yes Drug Use: none Patient Lives Alone: No - Female History Hx Now: No (possible) - Nursing Vital Signs Nursing Vital Signs: Initial Vital Signs Blood Pressure 117/78 07/22/23 22:36 Pain Scale Pain Intensity 8 - Physical Exam General Appearance: no apparent distress, alert Eye Exam: PERRL/EOMI, eyes nml inspection Ears, Nose, Throat Exam: normal ENT inspection, pharynx normal, moist mucous membranes Neck Exam: normal inspection, non-tender, supple, full range of motion Respiratory Exam: normal breath sounds, lungs clear, No respiratory distress Cardiovascular Exam: regular rate/rhythm, normal heart sounds Gastrointestinal/Abdomen Exam: soft, tenderness (Right upper quadrant tenderness, no rebound no guarding or rigidity. No right lower quadrant tenderness or rebound), No mass Back Exam: normal inspection, normal range of motion, No CVA tenderness, No vertebral tenderness Extremity Exam: normal inspection, normal range of motion, pelvis stable Neurologic Exam: alert, oriented x 3, cooperative, normal mood/affect, nml cerebellar function, sensation nml, No motor deficits Skin Exam: normal color, warm, dry SpO2: 97 - Course Nursing assessment & vital signs reviewed: Yes Ordered Tests: Active Orders 24 hr Category Date Time Status ABDOMEN AND PELVIS W CONTRAST [CT] Stat Exams 07/23/23 03:00 Completed CBC W DIFF Stat Lab 07/22/23 23:19 Completed CMP Stat Lab 07/22/23 23:19 Completed HCG QUALITATIVE, URINE Stat Lab 07/22/23 23:02 Completed LIPASE Stat Lab 07/22/23 23:19 Completed UA W/RFX UR CULTURE Stat Lab 07/22/23 22:59 Completed Medication Summary Discontinued Medications Generic Name Dose Route Start Last Admin Trade Name Elijah PRN Reason Stop Dose Admin Hydrocodone Bitart/Acetaminophen 2 tab 07/23/23 01:04 07/23/23 01:24 Hydrocodone/Apap 5/325 1 Tab Tablet PO 07/23/23 01:05 2 tab STAT ONE Administration Hydrocodone Bitart/Acetaminophen Confirm 07/23/23 01:17 Hydrocodone/Apap 5/325 1 Tab Tablet Administered 07/23/23 01:18 Dose 2 tab .ROUTE .STK-MED ONE Fentanyl Citrate 50 mcg 07/23/23 02:32 07/23/23 03:29 Fentanyl Citrate 100 Mcg/2 Ml* Vial IV 07/23/23 02:33 50 mcg STAT ONE Administration Fentanyl Citrate Confirm 07/23/23 03:26 Fentanyl Citrate 100 Mcg/2 Ml* Vial Administered 07/23/23 03:27 Dose 100 mcg .ROUTE .STK-MED ONE Hydromorphone HCl 1 mg 07/23/23 01:53 07/23/23 02:02 Hydromorphone 1 Mg/1ml Inj IM 07/23/23 01:54 1 mg STAT ONE Administration Hydromorphone HCl Confirm 07/23/23 02:00 Hydromorphone 1 Mg/1ml Inj Administered 07/23/23 02:01 Dose 1 mg .ROUTE .STK-MED ONE Sodium Chloride 1,000 mls @ 999 mls/hr 07/23/23 02:32 07/23/23 03:29 Sodium Chloride 0.9% 1000 Ml IV 07/23/23 03:32 999 mls/hr .Q1H1M STA Administration Sodium Chloride Confirm 07/23/23 03:27 Sodium Chloride 0.9% 1000 Ml Administered 07/23/23 03:28 Dose 1,000 mls @ ud .ROUTE .STK-MED ONE Ketorolac Tromethamine 30 mg 07/22/23 23:24 07/22/23 23:54 Ketorolac Tromethamine 30 Mg/Ml Inj IM 07/22/23 23:25 30 mg STAT ONE Administration Ketorolac Tromethamine Confirm 07/22/23 23:40 Ketorolac Tromethamine 30 Mg/Ml Inj Administered 07/22/23 23:41 Dose 30 mg .ROUTE .STK-MED ONE Ondansetron HCl 4 mg 07/23/23 01:26 07/23/23 01:28 Zofran 4 Mg/Udtablet Orally Disintegrating PO 07/23/23 01:27 4 mg STAT ONE Administration Ondansetron HCl Confirm 07/23/23 01:27 Zofran 4 Mg/Udtablet Orally Disintegrating Administered 07/23/23 01:28 Dose 4 mg .ROUTE .STK-MED ONE Lab/Rad Data: Laboratory Result Diagrams 07/22/23 23:19 07/22/23 23:19 Laboratory Results 07/22/23 07/22/23 07/22/23 Range/Units 23:19 23:19 23:02 WBC 9.2 (4.0-10.5) x10^3/uL RBC 4.93 (4.1-5.4) x10^6/uL Hgb 10.8 L (12.0-16.0) g/dL Hct 35.1 (35-47) % MCV 71.2 L (78-100) fL MCH 21.9 L (26-32) pg MCHC 30.8 L (32-36) g/dL RDW 16.4 H (11.5-14.0) % Plt Count 288 (150-450) x10^3/uL MPV 8.9 (7.5-11.0) fL Gran % 73.7 H (36.0-66.0) % Immature Gran % (Auto) 0.3 (0.00-0.4) % Nucleat RBC Rel Count 0.0 (0.00-0.1) % Eos # (Auto) 0.10 (0-0.5) x10^3/uL Immature Gran # (Auto) 0.03 (0.00-0.03) x10^3u/L Absolute Lymphs (auto) 1.77 (1.0-4.6) x10^3/uL Absolute Monos (auto) 0.49 (0.0-1.3) x10^3/uL Absolute Nucleated RBC 0.00 (0.00-0.01) x10^3u/L Lymphocytes % 19.3 L (24.0-44.0) % Monocytes % 5.3 (0.0-12.0) % Eosinophils % 1.1 (0.00-5.0) % Basophils % 0.3 (0.0-0.4) % Absolute Granulocytes 6.77 (1.4-6.9) x10^3/uL Basophils # 0.03 (0-0.4) x10^3/uL Sodium 136 L (137-145) mmol/L Potassium 3.6 (3.5-5.1) mmol/L Chloride 104 (98-107) mmol/L Carbon Dioxide 22 (22-30) mmol/L Anion Gap 13.7 (5-15) MEQ/L BUN 13 (7-17) mg/dL Creatinine 0.67 (0.52-1.04) mg/dL Estimated GFR 124.3 ML/MIN Glucose 104 (74-106) mg/dL Calcium 9.3 (8.4-10.2) mg/dL Total Bilirubin 0.50 (0.2-1.3) mg/dL AST 24 (14-36) U/L ALT 20 (0-35) U/L Alkaline Phosphatase 75 (38-126) U/L Serum Total Protein 7.7 (6.3-8.2) g/dL Albumin 4.4 (3.5-5.0) g/dL Lipase 77 (23-300) U/L Urine Color (Yellow) Urine Appearance (Clear) Urine pH (4.6-8.0) Ur Specific [place] (1.005-1.030) Urine Protein (Negative) Urine Glucose (UA) (Negative) mg/dL Urine Ketones (Negative) Urine Blood (Negative) Urine Nitrite (Negative) Urine Bilirubin (Negative) Urine Urobilinogen (0.2) mg/dL Ur Leukocyte Esterase (Negative) U Hyaline Cast (Auto) (0-2) /LPF Urine Microscopic RBC (0-5) /HPF Urine Microscopic WBC (0-5) /HPF Ur Epithelial Cells (None Seen) /HPF Urine Bacteria (None Seen) /HPF Urine Culture Reflexed (NO) Urine HCG, Qual NEGATIVE (NEGATIVE) 07/22/23 Range/Units 22:59 WBC (4.0-10.5) x10^3/uL RBC (4.1-5.4) x10^6/uL Hgb (12.0-16.0) g/dL Hct (35-47) % MCV (78-100) fL MCH (26-32) pg MCHC (32-36) g/dL RDW (11.5-14.0) % Plt Count (150-450) x10^3/uL MPV (7.5-11.0) fL Gran % (36.0-66.0) % Immature Gran % (Auto) (0.00-0.4) % Nucleat RBC Rel Count (0.00-0.1) % Eos # (Auto) (0-0.5) x10^3/uL Immature Gran # (Auto) (0.00-0.03) x10^3u/L Absolute Lymphs (auto) (1.0-4.6) x10^3/uL Absolute Monos (auto) (0.0-1.3) x10^3/uL Absolute Nucleated RBC (0.00-0.01) x10^3u/L Lymphocytes % (24.0-44.0) % Monocytes % (0.0-12.0) % Eosinophils % (0.00-5.0) % Basophils % (0.0-0.4) % Absolute Granulocytes (1.4-6.9) x10^3/uL Basophils # (0-0.4) x10^3/uL Sodium (137-145) mmol/L Potassium (3.5-5.1) mmol/L Chloride (98-107) mmol/L Carbon Dioxide (22-30) mmol/L Anion Gap (5-15) MEQ/L BUN (7-17) mg/dL Creatinine (0.52-1.04) mg/dL Estimated GFR ML/MIN Glucose (74-106) mg/dL Calcium (8.4-10.2) mg/dL Total Bilirubin (0.2-1.3) mg/dL AST (14-36) U/L ALT (0-35) U/L Alkaline Phosphatase (38-126) U/L Serum Total Protein (6.3-8.2) g/dL Albumin (3.5-5.0) g/dL Lipase (23-300) U/L Urine Color Yellow (Yellow) Urine Appearance Clear (Clear) Urine pH 5.5 (4.6-8.0) Ur Specific [place] 1.020 (1.005-1.030) Urine Protein Negative (Negative) Urine Glucose (UA) Negative (Negative) mg/dL Urine Ketones Negative (Negative) Urine Blood Negative (Negative) Urine Nitrite Negative (Negative) Urine Bilirubin Negative (Negative) Urine Urobilinogen 1.0 A (0.2) mg/dL Ur Leukocyte Esterase Negative (Negative) U Hyaline Cast (Auto) NONE SEEN (0-2) /LPF Urine Microscopic RBC 0-2 (0-5) /HPF Urine Microscopic WBC 0-2 (0-5) /HPF Ur Epithelial Cells None Seen (None Seen) /HPF Urine Bacteria None Seen (None Seen) /HPF Urine Culture Reflexed NO (NO) Urine HCG, Qual (NEGATIVE) - Progress Progress: improved Progress Note: 07/23/23 11:30 27 years old female with past medical history of cholecystectomy, chronic abdo denise pain that she has been having since February of last year. The patient is presenting to the emergency room complaining of abdominal pain in the right upper quadrant that started at around 1 PM after lunch. The patient initially had loose bowel movement followed by the the right upper quadrant abdominal pain. She felt nauseous and vomited couple of times. She had couple of loose bowel movements after that. The patient have had multiple bouts of abdominal pain in the last 5 months, she had couple of CT scans which were negative, an EGD which was negative and she is supposed to follow-up with GI in [place] next week. She is expecting her menstrual period at any time, she denies any urinary symptoms. No fever or chills. The patient took some Tylenol and ibuprofen for her pain today without much relief. Emergency room course and medical decision making. Will start with CBC, CMP, lipase and urine analysis. For the patient be given Toradol 30 mg IM. As mentioned above the patient had couple of CT scans of abdomen and pelvis which were negative. She only has right upper quadrant tenderness no right lower quadrant tenderness rebound or guarding. 07/23/23 01:06 Patient blood work results reviewed, normal white count 9.2, hemoglobin 10.8. Normal lipase at 77, normal liver function test. Normal urinalysis. The patient states that her pain is down from 8 out of 10 to 6 out of 10, after the Toradol shot. She will be given [place] 10 mg oral dose. Someone has to come and pick her up, the patient will be calling her to pick her up. 07/23/23 01:54 The patient vomited the [place] still rates her pain 6 out of 10. She will be given Dilaudid 1 mg IM. She already has Zofran 4 mg ODT. 07/23/23 02:33 The patient states that her pain is not any better after the Dilaudid 1 mg IM?. Order a CT scan of the abdomen and pelvis with IV contrast IV fluid 0.9 saline Fentanyl 50 mg IV. 07/23/23 04:19 CT scan of abdomen and pelvis revealed no significant interval changes from prior CT scans. No acute intra abdominal or pelvic pathology. The patient was updated with the above and reassured. She feels slightly better after the above pain medication that she was given. The patient will be discharged home she needs to follow-up with her primary care and her GI as soon as possible. To continue taking her dicyclom - Departure Departure Disposition: Home Clinical Impression: RUQ abdominal pain Condition: Stable Critical Care Time: No Referrals: ANNE IBARRA NP [Primary Care Provider] - Follow up/PCP as directed Instructions: Abdominal pain Additional Instructions: Soft diet Follow-up with your primary care physician and flotation tender helper. Continue present medications. Avoid heavy fatty meals. Prescriptions: Hydrocodone/APAP 5/325 [[place] 5/325 mg] 1 each PO Q6H PRN PRN #12 tablet MDD 6 PRN Reason: Pain
[2023-07-22 23:08] LABS: HCG URINE TEST NEGATIVE (NEGATIVE)
[2023-07-22 23:13] LABS: Appearance Clear (Clear); Bacteria None Seen /HPF (None Seen); Bilirubin Negative (Negative); Blood Negative (Negative); Epithelial Cells None Seen /HPF (None Seen); Glucose, Urine Negative (Negative); Hyaline Casts NONE SEEN /LPF (0-2); Ketones Negative (Negative); Leukocyte Esterase Negative (Negative); Nitrite Negative (Negative); Ph 5.5 (4.6-8.0); Protein,Urine Dip Negative (Negative); RBC 0-2 /HPF (0-5); WBC 0-2 /HPF (0-5)
[2023-07-22 23:16] LABS: ADD URINE CULTURE? NO (NO)
[2023-07-22 23:21] LABS: Absolute Neutrophil Ct (ANC) 6.77 x10^3/uL (1.4-6.9); BASOPHIL % 0.3 % (0.0-0.4); Basophil (Absolute #) 0.03 x10^3/uL (0-0.4); Eosinophil % 1.1 % (0.00-5.0); Hematocrit 35.1 % (35-47); Hemoglobin 10.8 g/dL (12.0-16.0); IMMATURE GRAN # 0.03 x10^3u/L (0.00-0.03); IMMATURE GRAN % 0.3 % (0.00-0.4); Lymphocyte (Absolute #) 1.77 x10^3/uL (1.0-4.6); Lymphocytes % 19.3 % (24.0-44.0); Mean Cell Volume 71.2 fL (78-100); Mean Corpuscular Hemoglobin 21.9 pg (26-32); Mean Corpuscular Hgb Concent. 30.8 g/dL (32-36); Mean Platelet Volume 8.9 fL (7.5-11.0); Monocyte (Absolute #) 0.49 x10^3/uL (0.0-1.3); Monocytes % 5.3 % (0.0-12.0); Neutrophil % 73.7 % (36.0-66.0); Platelet Count 288 x10^3/uL (150-450); Red Blood Count 4.93 x10^6/uL (4.1-5.4); Red Cell Distribution Width 16.4 % (11.5-14.0); White Blood Count 9.2 x10^3/uL (4.0-10.5)
[2023-07-22] MEDS ORDERED: TORAdol 30 mg Injection IM ONE (23:24)
[2023-07-22 23:34] LABS: ALBUMIN 4.4 g/dL (3.5-5.0); ANION GAP 13.7 MEQ/L (5-15); BILIRUBIN,TOTAL 0.5 mg/dL (0.2-1.3); Calcium 9.3 mg/dL (8.4-10.2); Creatinine 1 0.67 mg/dL (0.52-1.04); EST GLOMERULAR FILTRATION RATE 124.3 ML/MIN; Potassium 3.6 mmol/L (3.5-5.1); Total Protein 7.7 g/dL (6.3-8.2)
[2023-07-22] MEDS ORDERED: TORAdol 30 mg Injection ONE (23:40)
[2023-07-23] MEDS ORDERED: NORCO 5/325 MG PO ONE (01:04)
[2023-07-23] MEDS ORDERED: NORCO 5/325 MG ONE (01:17)
[2023-07-23] MEDS ORDERED: ZOFRAN ODT 4 MG PO ONE (01:26)
[2023-07-23] MEDS ORDERED: ZOFRAN ODT 4 MG ONE (01:27)
[2023-07-23] MEDS ORDERED: Hydromorphone 1 mg/ml Injection IM ONE (01:53)
[2023-07-23] MEDS ORDERED: Hydromorphone 1 mg/ml Injection ONE (02:00)
[2023-07-23] MEDS ORDERED: Sodium Chloride 0.9% 1000 ML 1,000 ML IV STA (02:32)
[2023-07-23] MEDS ORDERED: SUBLIMAZE 100 MCG/2 ML IV ONE (02:32)
[2023-07-23] MEDS ORDERED: SUBLIMAZE 100 MCG/2 ML ONE (03:26)
[2023-07-23] MEDS ORDERED: Sodium Chloride 0.9% 1000 ML 1,000 ML ONE (03:27)
--- NOTE | 2023-07-23 03:56 | XRAY ---
CLINICAL HISTORY: RUQ pain TECHNIQUE: CT of the abdomen and pelvis was performed with axial images as well as sagittal and coronal reconstruction images with intravenous contrast. 80 CC Isovue 370 was given as an IV contrast. COMPARISON: CT dated: 03/01/2023 FINDINGS: The liver is normal in size and attenuation. No definite focal lesion. No evidence of intrahepatic biliary dilatation. The Portal vein appears unremarkable. The gallbladder is not visualized, likely secondary to cholecystectomy as evidenced by surgical clips in the gallbladder fossa. The spleen, pancreas, and bilateral adrenal glands appear unremarkable. Slightly prominent CBD is likely secondary to postcholecystectomy status. Both kidneys are normal in size and shape. No renal calculus or evidence of obstructive uropathy. The urinary bladder is suboptimally distended. Uterus and bilateral adnexa appear unremarkable. Phleboliths in the left side of the pelvis. The stomach is normally distended. Visualized large and small bowel loops appear unremarkable. The appendix is not discretely visualized, however, there are no secondary signs of acute appendicitis. Small fat-containing umbilical hernia. No ascites or pneumoperitoneum. Few subcentimeter mesenteric lymph nodes on the right side of the abdomen. Visualized abdominal and pelvic vasculature appears grossly unremarkable. No acute osseous abnormality. Atelectatic changes in the lung bases. IMPRESSION: 1. No significant interval change from prior CT examination. 2. No acute intra-abdominal or pelvic pathology. Electronically Signed by: Ashli Cotton MD. (07/23/2023 03:53:01 EST)
[2023-07-23 04:38] VITALS: BP 98/70; PULSE 84; RESP 16
[2023-07-23 07:09] VITALS: O2SAT 97
== END 2023-07-23 04:44 | disposition home or self-care (01) ==
LOC: ED 22:23
DX: R10.11 Right upper quadrant pain (principal); R11.2 Nausea with vomiting, unspecified; I10 Essential (primary) hypertension; Z79.891 Long term (current) use of opiate analgesic; Z79.899 Other long term (current) drug therapy
CPT/HCPCS: 36000; 36415; 74177; 80053; 81001; 81025; 83690; 85025; 96372; 96374; 99284; J1170; J1885; J3010; Q0162; A9270-GY